=== PATIENT | female | born 1995 | race Two or more races ===

== ENCOUNTER 2018-12-13 00:03 | Inpatient (IN) | payer SELFPAY ==
[~2018-12-13] VITALS: Ht 147.3 cm; Wt 58.8 kg
[2018-12-13] VITALS (7 sets, daily range): BP systolic 88–119; BP diastolic 52–78
[2018-12-13 00:36] LABS: BASO # 0.1 x10^3/uL (0.0-0.2); BASO % 1 % (0-3); EOS # 0.1 x10^3/uL (0.0-0.7); EOS % 1 % (0-3); HEMATOCRIT 40.1 % (36.0-47.0); HEMOGLOBIN 13.6 g/dL (12.0-15.5); LYMPH # 3.7 x10^3/uL (1.0-4.8); LYMPH % 46 % (24-48); MEAN CORPUSCULAR HEMOGLOBIN 32 pg (25-35); MEAN CORPUSCULAR HGB CONC 34 g/dL (31-37); MEAN CORPUSCULAR VOLUME 93 fL (79-100); MONO # 0.6 x10^3/uL (0.0-1.1); MONO % 7 % (0-9); NEUT # 3.5 x10^3uL (1.8-7.7); NEUT % 44 % (31-73); PLATELET COUNT 225 x10^3/uL (140-400); RED BLOOD COUNT 4.31 x10^6/uL (3.50-5.40); WHITE BLOOD COUNT 7.9 x10^3/uL (4.0-11.0)
[2018-12-13] MEDS ORDERED: CONTRAST GIVEN. MC PRN (00:45)
--- NOTE | 2018-12-13 00:52 | RAD ---
INDICATION: code stroke rt sided weakness, visual changes COMPARISON: None. TECHNIQUE: Axial CT images obtained through the head without intravenous contrast. One or more of the following individualized dose reduction techniques were utilized for this examination: 1. Automated exposure control; 2. Adjustment of the mA and/or kV according to patient size; 3. Use of iterative reconstruction technique. FINDINGS: No intracranial hemorrhage. No midline shift. Basal cisterns patent. Ventricles and sulci are unremarkable. No acute osseous abnormality. Orbits and paranasal sinuses unremarkable. IMPRESSION: 1. No acute intracranial hemorrhage. Report called to the ER at 12:47 AM on date of exam Electronically signed by: Anthony Vargas MD (12/13/2018 12:49 AM) [facility]
[2018-12-13] MEDS ORDERED: IOHEXOL 350 MG/ML 100 ML VIAL. IV ONE ×2 (01:00→06:00)
[2018-12-13] MEDS ORDERED: IV NORMAL SALINE 1000ML BAG 1,000 ML IV ONE (01:00)
--- NOTE | 2018-12-13 01:03 | PHYS DOC ---
Past Medical History Past Medical History: No Pertinent History Past Surgical History: No Surgical History Additional Information: Nonsmoker Alcohol Use: None Drug Use: None Adult General Chief Complaint Chief Complaint: NEURO SYMPTOMS/DEFICITS HPI HPI Patient is a 23 year old female who presents with right sided numbness. Patient states that she was taking a shower around 2330 this evening when her right arm, face, and leg went numb. Patient states that she also developed blurred vision at that time. Patient reports a gradual onset headache that began around 1700 this evening. Patient's boyfriend who is present at bedside states that the patient could not remember that they have a cat or the cat's name. Patient's headache is located in the occipital area. Patient describes the headache as pound and burning and currently rates it to be 7/1-. Patient denies photophobia, phonophobia, chest pain, and shortness of breath. Patient states that she has had headaches in the past, but never as bad as her current headache. LMP was 4 weeks ago. Patient is on oral contraceptives. Review of Systems Review of Systems Constitutional: Denies fever or chills Eyes: Reports change in visual acuity. Denies redness, or eye pain HENT: Denies nasal congestion or sore throat Respiratory: Denies cough or shortness of breath Cardiovascular: Denies chest pain or palpitations. GI: Denies abdominal pain, nausea, vomiting, or diarrhea : Denies dysuria or hematuria Musculoskeletal: Denies back pain or joint pain Integument: Denies rash or skin lesions Neurologic: Reports headache, weakness, and sensory changes. Complete systems were reviewed and found to be within normal limits, except as documented in this note. Current Medications Current Medications Current Medications Medications (Trade) Dose Ordered Sig/[facility] Start Time Stop Time Status Last Admin Dose Admin Aspirin (Miguel Aspirin) 325 mg 1X ONCE 12/13/18 01:30 12/13/18 01:31 DC 12/13/18 01:07 325 MG Info (CONTRAST GIVEN -- Rx MONITORING) 1 each PRN DAILY PRN 12/13/18 00:45 12/15/18 00:44 Iohexol (Omnipaque 350 Mg/ml) 90 ml 1X ONCE 12/13/18 01:00 12/13/18 01:01 DC 12/13/18 00:45 90 ML Lorazepam (Ativan) 0.5 mg 1X ONCE 12/13/18 01:00 12/13/18 01:01 DC 12/13/18 01:07 0.5 MG Sodium Chloride 1,000 ml @ 1,000 mls/hr 1X ONCE 12/13/18 01:00 12/13/18 01:59 DC 12/13/18 01:07 1,000 MLS/HR Allergies Allergies Allergies Coded Allergies Type Severity Reaction Last Updated Verified No Known Drug Allergies 12/13/18 No Physical Exam Physical Exam Constitutional: Well developed, well nourished, and tearful throughout examination. HENT: tenderness of occipital area on palpation, oropharynx moist, nose normal. Eyes: PERRL, EOMI, conjunctiva normal, no discharge. Neck: Normal range of motion, supple, no stridor. Cardiovascular: Heart rate regular rhythm, no murmur Lungs & Thorax: Bilateral breath sounds clear to auscultation Abdomen: Soft, no tenderness on palpation. Skin: Warm, dry. Back: No tenderness, no CVA tenderness. Extremities: ROM intact, no edema. Neurologic: Alert and oriented X3, decreased sensation of right face, right arm, and right leg. No slurred speech. No facial droop. Slight drifting of the right leg noted. No drift of left leg. Psychologic: Affect normal. Speech normal. Current Patient Data Vital Signs Vital Signs Date Time Temp Pulse Resp B/P (MAP) Pulse Ox O2 Delivery O2 Flow Rate FiO2 12/13/18 02:07 83 16 100 12/13/18 00:03 98.5 123/75 (91) Room Air 98.5 Lab Values Laboratory Tests Test 12/13/18 00:19 12/13/18 00:25 12/13/18 00:54 12/13/18 01:44 Glucose (Fingerstick) 124 mg/dL (70-99) H White Blood Count 7.9 x10^3/uL (4.0-11.0) Red Blood Count 4.31 x10^6/uL (3.50-5.40) Hemoglobin 13.6 g/dL (12.0-15.5) Hematocrit 40.1 % (36.0-47.0) Mean Corpuscular Volume 93 fL (79-100) Mean Corpuscular Hemoglobin 32 pg (25-35) Mean Corpuscular Hemoglobin Concent 34 g/dL (31-37) Red Cell Distribution Width 13.0 % (11.5-14.5) Platelet Count 225 x10^3/uL (140-400) Neutrophils (%) (Auto) 44 % (31-73) Lymphocytes (%) (Auto) 46 % (24-48) Monocytes (%) (Auto) 7 % (0-9) Eosinophils (%) (Auto) 1 % (0-3) Basophils (%) (Auto) 1 % (0-3) Neutrophils # (Auto) 3.5 x10^3uL (1.8-7.7) Lymphocytes # (Auto) 3.7 x10^3/uL (1.0-4.8) Monocytes # (Auto) 0.6 x10^3/uL (0.0-1.1) Eosinophils # (Auto) 0.1 x10^3/uL (0.0-0.7) Basophils # (Auto) 0.1 x10^3/uL (0.0-0.2) Lactic Acid Level 1.5 mmol/L (0.4-2.0) Magnesium Level 1.9 mg/dL (1.8-2.4) Ethyl Alcohol Level < 10 mg/dL (0-10) Sodium Level 137 mmol/L (136-145) Potassium Level 3.1 mmol/L (3.5-5.1) L Chloride Level 105 mmol/L (98-107) Carbon Dioxide Level 23 mmol/L (21-32) Anion Gap 9 (6-14) Blood Urea Nitrogen 8 mg/dL (7-20) Creatinine 0.6 mg/dL (0.6-1.0) Estimated GFR (Cockcroft-Gault) 123.9 BUN/Creatinine Ratio 13 (6-20) Glucose Level 109 mg/dL (70-99) H Calcium Level 7.8 mg/dL (8.5-10.1) L Total Bilirubin 0.1 mg/dL (0.2-1.0) L Aspartate Amino Transferase (AST) 18 U/L (15-37) Alanine Aminotransferase (ALT) 20 U/L (14-59) Alkaline Phosphatase 65 U/L (46-116) Creatine Kinase 100 U/L (26-192) Creatine Kinase MB (Mass) 0.8 ng/mL (0.0-3.6) Creatine Kinase MB Relative Index 0.8 % (0-4) Troponin I Quantitative < 0.017 ng/mL (0.000-0.055) Total Protein 6.2 g/dL (6.4-8.2) L Albumin 3.0 g/dL (3.4-5.0) L Albumin/Globulin Ratio 0.9 (1.0-1.7) L Urine Opiates Screen Neg (NEG) Urine Methadone Screen Neg (NEG) Urine Barbiturates Neg (NEG) Urine Phencyclidine Screen Neg (NEG) Urine Amphetamine/Methamphetamine Neg (NEG) Urine Benzodiazepines Screen Neg (NEG) Urine Cocaine Screen Neg (NEG) Urine Cannabinoids Screen Neg (NEG) Urine Ethyl Alcohol Neg (NEG) Test 12/13/18 01:46 POC Urine HCG, Qualitative Hcg negative (Negative) Laboratory Tests 12/13/18 00:25 Laboratory Tests 12/13/18 00:54 EKG EKG ECG performed at 01:06 reveals normal sinus rhythm at 69bpm. No ST elevation. Radiology/Procedures Radiology/Procedures PROCEDURE: CT CODE STROKE HEAD WO INDICATION: code stroke rt sided weakness, visual changes COMPARISON: None. TECHNIQUE: Axial CT images obtained through the head without intravenous contrast. One or more of the following individualized dose reduction techniques were utilized for this examination: 1. Automated exposure control; 2. Adjustment of the mA and/or kV according to patient size; 3. Use of iterative reconstruction technique. FINDINGS: No intracranial hemorrhage. No midline shift. Basal cisterns patent. Ventricles and sulci are unremarkable. No acute osseous abnormality. Orbits and paranasal sinuses unremarkable. IMPRESSION: 1. No acute intracranial hemorrhage. Report called to the ER at 12:47 AM on date of exam Electronically signed by: Anthony Vargas MD (12/13/2018 12:49 AM) [facility] PROCEDURE: CTA HEAD/NECK - CODE STROKE INDICATION: right sided numbness, visual changes, right leg weakness Omni 350 90 ml COMPARISON: Head CT earlier same day TECHNIQUE: Axial CT images obtained through the head and neck arterial vasculature with intravenous contrast with three-dimensional images process per angiogram protocol. Estimates of carotid stenosis based on criteria that correlate with NASCET.. One or more of the following individualized dose reduction techniques were utilized for this examination: 1. Automated exposure control; 2. Adjustment of the mA and/or kV according to patient size; 3. Use of iterative reconstruction technique. FINDINGS: Neck angiogram: The vertebral arteries are patent. Common carotid and internal carotid arteries are patent. Proximal external carotid arteries are patent. Brain angiography: Basilar artery is patent. The proximal middle, anterior and posterior cerebral arteries are patent. The more distal vessels are not well evaluated secondary to small size and motion. Other findings: No retro-orbital hematoma. Soft tissue density anterior mediastinum. Commonly from residual thymus in a patient of this age. IMPRESSION: 1. No evidence of occlusion of the vertebral, common carotid or internal carotid arteries. 2. The proximal middle, anterior and posterior cerebral arteries are patent. If there is high clinical concern for stroke MRI could better evaluate for a more peripheral stroke that would not be well seen on CT angiography. Electronically signed by: Anthony Vargas MD (12/13/2018 1:45 AM) [facility] Course & Med Decision Making Course & Med Decision Making Patient is a 23 year old female who presents to the ED for right sided numbness. Code stroke initiated. Low risk factors. NIHSS 3. Labs obtained and posted to chart. Patient with significant improvement of symptoms on reexamination. TPA therefore held. Pertinent Labs and Imaging studies reviewed. (See chart for details). Cannot fully exclude TIA with rapidly improving symptoms. Patient therefore offered admission for further evaluation and treatment. Neurology Consulted. Discussed case with Dr. Hernandez (hospitalist) who agrees with admission. Discussed findings and plan with patient and her family who verbalized understanding and agreed. Dragon Disclaimer Dragon Disclaimer This electronic medical record was generated, in whole or in part, using a voice recognition dictation system. NIHSS Stroke Scale NIH Stroke Scale: NIH Stroke Scale Response (Comments) Value Level of Consciousness: 0 Alert/Responsive 0 LOC Questions: 0 Answers both correctly 0 LOC Commands: 0 Performs both tasks 0 Best Gaze: 0 Normal 0 Visual: 1 Partial hemianopia 1 Facial Palsy: 0 Normal, symmetrical 0 Motor - Left Arm 0 No drift 0 Motor - Right Arm 0 No drift 0 Motor - Left Leg 0 No drift 0 Motor: Right Leg 1 Drift but can hold 1 Limb Ataxia: 0 Absent 0 Sensory: 1 Mid to moderate loss 1 Best Language: 0 Normal 0 Dysathria: 0 Normal 0 Extinction and Inattention: 0 Normal 0 Total 3 Departure Departure Impression: Primary Impression: Arm paresthesia, right Additional Impression: Weakness of right lower extremity Disposition: ADMITTED INPATIENT Admitting Physician: Other (David) Condition: STABLE Referrals: NO PCP (PCP) Critical Care Time Critical care time was 30 minutes which includes time at bedside, spent in discussion of patient's care with specialists and/or family members, with interpretation of laboratory and/or radiological studies and is exclusive of procedures. Problem Qualifiers MARTINEZ WILLETT DO Dec 13, 2018 01:03
[2018-12-13 01:11] LABS: CALCIUM 7.8 mg/dL (8.5-10.1); CREATININE 0.6 mg/dL (0.6-1.0); GFR 123.9; POTASSIUM 3.1 mmol/L (3.5-5.1)
[2018-12-13 01:17] LABS: ALBUMIN/GLOBULIN RATIO 0.9 (1.0-1.7); TOTAL BILIRUBIN 0.1 mg/dL (0.2-1.0); TOTAL PROTEIN 6.2 g/dL (6.4-8.2)
[2018-12-13] MEDS ORDERED: ASPIRIN 325 MG TABLET PO ONE (01:30)
--- NOTE | 2018-12-13 01:48 | RAD ---
INDICATION: right sided numbness, visual changes, right leg weakness Omni 350 90 ml COMPARISON: Head CT earlier same day TECHNIQUE: Axial CT images obtained through the head and neck arterial vasculature with intravenous contrast with three-dimensional images process per angiogram protocol. Estimates of carotid stenosis based on criteria that correlate with NASCET.. One or more of the following individualized dose reduction techniques were utilized for this examination: 1. Automated exposure control; 2. Adjustment of the mA and/or kV according to patient size; 3. Use of iterative reconstruction technique. FINDINGS: Neck angiogram: The vertebral arteries are patent. Common carotid and internal carotid arteries are patent. Proximal external carotid arteries are patent. Brain angiography: Basilar artery is patent. The proximal middle, anterior and posterior cerebral arteries are patent. The more distal vessels are not well evaluated secondary to small size and motion. Other findings: No retro-orbital hematoma. Soft tissue density anterior mediastinum. Commonly from residual thymus in a patient of this age. IMPRESSION: 1. No evidence of occlusion of the vertebral, common carotid or internal carotid arteries. 2. The proximal middle, anterior and posterior cerebral arteries are patent. If there is high clinical concern for stroke MRI could better evaluate for a more peripheral stroke that would not be well seen on CT angiography. Electronically signed by: Anthony Vargas MD (12/13/2018 1:45 AM) [facility]
[2018-12-13 02:00] LABS: BARBITURATES NEG (NEG); BENZODIAZEPINES NEG (NEG); CANNABINOIDS NEG (NEG); COCAINE NEG (NEG); METHADONE NEG (NEG); OPIATES NEG (NEG); PHENCYCLIDINE NEG (NEG)
[2018-12-13 02:30] LABS: AMPHETAMINE/METHAMPHETAMINE NEG (NEG)
[2018-12-13] MEDS ORDERED: POTASSIUM CHLORIDE 20 MEQ TABLET.ER. PO ONE ×2 (02:30→11:00)
[2018-12-13] MEDS ORDERED: BUTALB/APAP/CAFEIN 50/325/40MG TABLET. PO ONE (03:00)
--- NOTE | 2018-12-13 04:00 | NUR ---
Patient arrived to unit at 0320. Patient attached to monitors and assessed. Patient weak on R side and has tingling sensation. NIH performed with ED RN. Patient situated and oriented to unit routines, call light, bed controls, tv controls, activity (up with assist), and diet (cardiac). Will continue to monitor.
--- NOTE | 2018-12-13 06:15 | EKG ---
[facility] [address] [place] [address] Test Date: 2018-12-13 Test Time: 01:06:29 Pat Name: ALLEN RAHMAN Department: Room: [facility] Gender: F [employer] Technician: : 1995 Requested By: MARTINEZ WILLETT Order Number: [id number] Reading MD: Karsten Allen Measurements Intervals Ramsey Rate: 69 P: 26 MO: 140 QRS: 35 QRSD: 84 T: 31 QT: 410 QTc: 446 Interpretive Statements SINUS RHYTHM NONSPECIFIC ST-T WAVE CHANGES. Electronically Signed On 12-19-2018 11:48:44 CDT by Karsten Allen
[2018-12-13] MEDS: SUMAtriptan SUCCINATE 100 MG TABLET PO PRN (10:33)
--- NOTE | 2018-12-13 10:51 | PDOC1 ---
History and Physical Date of Admission Date of Admission DATE: 12/13/18 TIME: 10:46 History of Present Illness History of Present Illness Zoila is a 23 year old female admit from ER with severe headache, pounding headache, "worst of my life" headache she also had right hand weakness, numbness and parathesias, started last night, pain is still severe, but weakness is gone, she has some blurry vision and new stabismus of her right eye LMP was 4 weeks ago. 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, Past Medical History Cardiovascular: No pertinent hx Pulmonary: No pertinent hx GI: No pertinent hx Heme/Onc: No pertinent hx Hepatobiliary: No pertinent hx Psych: No pertinent hx Rheumatologic: No pertinent hx Grav: 2 Para: 2 Family History Family History: Diabetes Social History Smoke: No ALCOHOL: none Drugs: None Current Problem List Problem List Problems Medical Problems: (1) Arm paresthesia, right Status: Acute Current Medications Current Medications Current Medications Sodium Chloride 1,000 ml @ 1,000 mls/hr 1X ONCE IV Last administered on 12/13/18at 01:07; Start 12/13/18 at 01:00; Stop 12/13/18 at 01:59; Status DC Iohexol (Omnipaque 350 Mg/ml) 90 ml 1X ONCE IV Last administered on 12/13/18at 00:45; Start 12/13/18 at 01:00; Stop 12/13/18 at 01:01; Status DC Lorazepam (Ativan) 0.5 mg 1X ONCE IV Last administered on 12/13/18at 01:07; Start 12/13/18 at 01:00; Stop 12/13/18 at 01:01; Status DC Info (CONTRAST GIVEN -- Rx MONITORING) 1 each PRN DAILY PRN MC SEE COMMENTS; Start 12/13/18 at 00:45; Stop 12/15/18 at 00:44 Aspirin (Miguel Aspirin) 325 mg 1X ONCE PO Last administered on 12/13/18at 01:07; Start 12/13/18 at 01:30; Stop 12/13/18 at 01:31; Status DC Potassium Chloride (Klor-Con) 40 meq 1X ONCE PO Last administered on 12/13/18at 02:50; Start 12/13/18 at 02:30; Stop 12/13/18 at 02:31; Status DC Acetaminophen/ Butalbital/ Caffeine (Fioricet) 1 tab 1X ONCE PO Last administered on 12/13/18at 02:51; Start 12/13/18 at 03:00; Stop 12/13/18 at 03:01; Status DC Iohexol (Omnipaque 350 Mg/ml) 90 ml 1X ONCE IV ; Start 12/13/18 at 06:00; Stop 12/13/18 at 06:01; Status DC Sumatriptan Succinate (Imitrex) 100 mg PRN Q2HR PRN PO MIGRAINE HEADACHE Last administered on 12/13/18at 10:33; Start 12/13/18 at 08:45 Allergies Allergies: Coded Allergies: No Known Drug Allergies (Unverified , 12/13/18) ROS General: YES: Fatigue; No: Chills, Night Sweats, Malaise, Appetite, Other PSYCHOLOGICAL ROS: No: Anxiety, Behavioral Disorder, Concentration difficultie, Decreased libido, Depression, Disorientation, Hallucinations, Hostility, Irritablity, Memory difficulties, Mood Swings, Obsessive thoughts, Physical abuse, Sexual abuse, Sleep disturbances, Suicidal ideation, Other Eyes: No Blurry vision, No Decreased vision, No Double vision, No Dry eyes, No Excessive tearing, No Eye Pain, No Itchy Eyes, No Loss of vision, No Photophobia, No Scotomata, No Uses contacts, No Uses glasses, No Other HEENT: YES: Heacaches; No: Visual Changes, Hearing change, Nasal congestion, Nasal discharge, Oral lesions, Sinus pain, Sore Throat, Epistaxis, Sneezing, Snoring, Tinnitus, Vertigo, Vocal changes, Other Respiratory: No: Cough, Hemoptysis, Orthopnea, Pleuritic Pain, Shortness of breath, SOB with excertion, Sputum Changes, Stridor, Tachypnea, Wheezing, Other Cardiovascular: No Chest Pain, No Palpitations, No Orthopnea, No Paroxysmal Noc. Dyspnea, No Edema, No Lt Headedness, No Other Gastrointestinal: Yes Nausea; No Vomiting, No Abdominal Pain, No Diarrhea, No Constipation, No Melena, No Hematochezia, No Other Genitourinary: No Dysuria, No Frequency, No Incontinence, No Hematuria, No Retention, No Discharge, No Urgency, No Pain, No Flank Pain, No Other, No , No , No , No , No , No , No Musculoskeletal: No Gait Disturbance, No Joint Pain, No Joint Stiffness, No Joint Swelling, No Muscle Pain, No Muscular Weakness, No Pain In:, No Swelling In:, No Other Neurological: Yes Gait Disturbance, Yes Headaches, Yes Numbness/Tingling Skin: Yes Dry Skin; No Eczema, No Hair Changes, No Lumps, No Mole Changes, No Mottling, No Nail Changes, No Pruritus, No Rash, No Skin Lesion Changes, No Other, No Acne Physical Exam General: Alert, Oriented X3, moderate distress HEENT: PERRLA, Mucous membr. moist/pink Lungs: Clear to auscultation, Normal air movement Heart: S1S2, no murmurs Abdomen: Normal bowel sounds, Soft Extremities: No cyanosis, Normal pulses Skin: No breakdown Neuro: Sensation intact Psych/Mental Status: Other (emotional, distress with headache) Vitals Vitals Vital Signs Date Time Temp Pulse Resp B/P (MAP) Pulse Ox O2 Delivery O2 Flow Rate FiO2 12/13/18 08:16 95/52 (66) 12/13/18 07:15 98.7 65 16 98 Room Air 98.7 Labs Labs Laboratory Tests Test 12/13/18 00:19 12/13/18 00:25 12/13/18 00:54 12/13/18 01:44 Glucose (Fingerstick) 124 mg/dL (70-99) White Blood Count 7.9 x10^3/uL (4.0-11.0) Red Blood Count 4.31 x10^6/uL (3.50-5.40) Hemoglobin 13.6 g/dL (12.0-15.5) Hematocrit 40.1 % (36.0-47.0) Mean Corpuscular Volume 93 fL (79-100) Mean Corpuscular Hemoglobin 32 pg (25-35) Mean Corpuscular Hemoglobin Concent 34 g/dL (31-37) Red Cell Distribution Width 13.0 % (11.5-14.5) Platelet Count 225 x10^3/uL (140-400) Neutrophils (%) (Auto) 44 % (31-73) Lymphocytes (%) (Auto) 46 % (24-48) Monocytes (%) (Auto) 7 % (0-9) Eosinophils (%) (Auto) 1 % (0-3) Basophils (%) (Auto) 1 % (0-3) Neutrophils # (Auto) 3.5 x10^3uL (1.8-7.7) Lymphocytes # (Auto) 3.7 x10^3/uL (1.0-4.8) Monocytes # (Auto) 0.6 x10^3/uL (0.0-1.1) Eosinophils # (Auto) 0.1 x10^3/uL (0.0-0.7) Basophils # (Auto) 0.1 x10^3/uL (0.0-0.2) Lactic Acid Level 1.5 mmol/L (0.4-2.0) Magnesium Level 1.9 mg/dL (1.8-2.4) Ethyl Alcohol Level < 10 mg/dL (0-10) Sodium Level 137 mmol/L (136-145) Potassium Level 3.1 mmol/L (3.5-5.1) Chloride Level 105 mmol/L (98-107) Carbon Dioxide Level 23 mmol/L (21-32) Anion Gap 9 (6-14) Blood Urea Nitrogen 8 mg/dL (7-20) Creatinine 0.6 mg/dL (0.6-1.0) Estimated GFR (Cockcroft-Gault) 123.9 BUN/Creatinine Ratio 13 (6-20) Glucose Level 109 mg/dL (70-99) Calcium Level 7.8 mg/dL (8.5-10.1) Total Bilirubin 0.1 mg/dL (0.2-1.0) Aspartate Amino Transf (AST/SGOT) 18 U/L (15-37) Alanine Aminotransferase (ALT/SGPT) 20 U/L (14-59) Alkaline Phosphatase 65 U/L (46-116) Creatine Kinase 100 U/L (26-192) Creatine Kinase MB (Mass) 0.8 ng/mL (0.0-3.6) Creatine Kinase MB Relative Index 0.8 % (0-4) Troponin I Quantitative < 0.017 ng/mL (0.000-0.055) Total Protein 6.2 g/dL (6.4-8.2) Albumin 3.0 g/dL (3.4-5.0) Albumin/Globulin Ratio 0.9 (1.0-1.7) Urine Opiates Screen Neg (NEG) Urine Methadone Screen Neg (NEG) Urine Barbiturates Neg (NEG) Urine Phencyclidine Screen Neg (NEG) Urine Amphetamine/Methamphetamine Neg (NEG) Urine Benzodiazepines Screen Neg (NEG) Urine Cocaine Screen Neg (NEG) Urine Cannabinoids Screen Neg (NEG) Urine Ethyl Alcohol Neg (NEG) Test 12/13/18 01:46 12/13/18 09:10 Bedside Urine HCG, Qualitative Hcg negative (Negative) Ionized Calcium 1.19 mmol/L (1.13-1.32) Laboratory Tests Test 12/13/18 00:19 12/13/18 00:25 12/13/18 00:54 12/13/18 01:44 Glucose (Fingerstick) 124 mg/dL (70-99) White Blood Count 7.9 x10^3/uL (4.0-11.0) Red Blood Count 4.31 x10^6/uL (3.50-5.40) Hemoglobin 13.6 g/dL (12.0-15.5) Hematocrit 40.1 % (36.0-47.0) Mean Corpuscular Volume 93 fL (79-100) Mean Corpuscular Hemoglobin 32 pg (25-35) Mean Corpuscular Hemoglobin Concent 34 g/dL (31-37) Red Cell Distribution Width 13.0 % (11.5-14.5) Platelet Count 225 x10^3/uL (140-400) Neutrophils (%) (Auto) 44 % (31-73) Lymphocytes (%) (Auto) 46 % (24-48) Monocytes (%) (Auto) 7 % (0-9) Eosinophils (%) (Auto) 1 % (0-3) Basophils (%) (Auto) 1 % (0-3) Neutrophils # (Auto) 3.5 x10^3uL (1.8-7.7) Lymphocytes # (Auto) 3.7 x10^3/uL (1.0-4.8) Monocytes # (Auto) 0.6 x10^3/uL (0.0-1.1) Eosinophils # (Auto) 0.1 x10^3/uL (0.0-0.7) Basophils # (Auto) 0.1 x10^3/uL (0.0-0.2) Lactic Acid Level 1.5 mmol/L (0.4-2.0) Magnesium Level 1.9 mg/dL (1.8-2.4) Ethyl Alcohol Level < 10 mg/dL (0-10) Sodium Level 137 mmol/L (136-145) Potassium Level 3.1 mmol/L (3.5-5.1) Chloride Level 105 mmol/L (98-107) Carbon Dioxide Level 23 mmol/L (21-32) Anion Gap 9 (6-14) Blood Urea Nitrogen 8 mg/dL (7-20) Creatinine 0.6 mg/dL (0.6-1.0) Estimated GFR (Cockcroft-Gault) 123.9 BUN/Creatinine Ratio 13 (6-20) Glucose Level 109 mg/dL (70-99) Calcium Level 7.8 mg/dL (8.5-10.1) Total Bilirubin 0.1 mg/dL (0.2-1.0) Aspartate Amino Transf (AST/SGOT) 18 U/L (15-37) Alanine Aminotransferase (ALT/SGPT) 20 U/L (14-59) Alkaline Phosphatase 65 U/L (46-116) Creatine Kinase 100 U/L (26-192) Creatine Kinase MB (Mass) 0.8 ng/mL (0.0-3.6) Creatine Kinase MB Relative Index 0.8 % (0-4) Troponin I Quantitative < 0.017 ng/mL (0.000-0.055) Total Protein 6.2 g/dL (6.4-8.2) Albumin 3.0 g/dL (3.4-5.0) Albumin/Globulin Ratio 0.9 (1.0-1.7) Urine Opiates Screen Neg (NEG) Urine Methadone Screen Neg (NEG) Urine Barbiturates Neg (NEG) Urine Phencyclidine Screen Neg (NEG) Urine Amphetamine/Methamphetamine Neg (NEG) Urine Benzodiazepines Screen Neg (NEG) Urine Cocaine Screen Neg (NEG) Urine Cannabinoids Screen Neg (NEG) Urine Ethyl Alcohol Neg (NEG) Test 12/13/18 01:46 12/13/18 09:10 Bedside Urine HCG, Qualitative Hcg negative (Negative) Ionized Calcium 1.19 mmol/L (1.13-1.32) VTE Prophylaxis Ordered VTE Prophylaxis Devices: No VTE Pharmacological Prophylaxi: No Assessment/Plan Assessment/Plan severe headache, imaging negative aura and pounding, 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
[2018-12-13] MEDS ORDERED: MORPHINE SULFATE 2 MG/ML VIAL. IV ONE (11:15)
[2018-12-13] MEDS: ASPIRIN 325 MG TABLET PO SCH (12:31)
[2018-12-13] MEDS ORDERED: GADOBUTROL 7.5 MMOL/7.5 ML VIAL IV ONE (14:30)
--- NOTE | 2018-12-13 15:41 | RAD ---
MRI of the Brain without and with Contrast 12/13/2018 Clinical History: Worsening headaches with right arm numbness. Technique: Unenhanced T1-weighted sagittal and axial and FLAIR, T2-weighted, gradient echo and diffusion-weighted axial images of the brain were obtained. After the intravenous administration of 5.5 cc of Gadavist, enhanced T1-weighted axial and coronal images of the brain were obtained. Findings: Comparison is made to patient's CT scan of the head dated 12/13/2018. The ventricles and sulci are within normal limits in size and configuration. Several small scattered areas of abnormally increased signal intensity are seen within the periventricular and subcortical white matter of both cerebral hemispheres particularly involving the frontal lobes on the FLAIR and T2-weighted images. These measure 2 to 3 mm in size. Their MRI appearance is nonspecific. They can be seen in patients with a history of migraine headaches. Alternatively they could represent areas of minimal small vessel ischemic disease. No acute parenchymal abnormality is seen. No abnormal area of contrast enhancement is seen. No extra-axial fluid collection is noted. There is no MRI evidence of acute ischemia/infarction. Mild mucosal thickening in seen scattered throughout the ethmoid air cells bilaterally. Normal flow voids are seen within the major vascular structures surrounding the brain parenchyma. Impression: Several small scattered areas of abnormally increased signal intensity are seen within the white matter of both cerebral hemispheres particularly involving the frontal lobes on the FLAIR and T2-weighted images. These have a nonspecific MRI appearance. They can be seen in patients with a history of migraine headaches. Alternatively they could represent areas of minimal small vessel ischemic disease. No acute parenchymal abnormality is seen. Electronically signed by: Bassam Adams MD (12/13/2018 3:38 PM) [id number]
[2018-12-13] MEDS: MORPHINE SULFATE 4 MG/ML VIAL. IV PRN (16:08)
--- NOTE | 2018-12-13 17:50 | PDOC2 ---
NEUROLOGY CONSULT Date of Admission Date of Admission DATE: 12/13/18 TIME: 17:38 Reason for Consult Reason for Consult: IMPRESSION: Right side numbness x 1 day. Blurred vision. Headaches x 1 day. Over weight. No evidence of acute CVA this time. RECOMMENDATIONS/PLAN: Neurontin 100 mg tid x 1 week. Pain control. FU with PCP. MRI w/wo contrast on 12/13/18: No acute findings. History of Present Illness 23 -year -old female patient developed symptoms of headache, pounding type pain stating, and numbness in her right side upper and lower extremities. She said she had blurred vision form time time. She came to the ER on 12/13/18 and was admitted for further evaluation. LMP was 4 weeks ago. 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 ALLERGY: NKDA MEDICATIONS: Refer to [facility] SOCIAL HISTORY: Lives at home. Denies smoking, drinking, and illicit drug use. REVIEW OF SYSTEMS: Constitutional: No malnutrition, weight loss, cachexia. Head: No traumatic brain or head injury. Skin: No edema, or rash. Ear: No infection. Eyes: No vision loss or color blindness. Nose: No bleeding or purulent discharges. Hearing: No hearing decrease. Neck: No injury. Breast: No history of cancer, masses,or discharges. Cardiac: No WI, arrhythmia. Pulmonary: No pneumonia, COPD. GI: No GI ulcer, GI bleeding, GERD. Urinary/genital: UTI. Endocrinologic: No cousin face, craniofacial dysmorphism, polydactyly. Skeletomuscular: No muscular atrophy, deformity. Neurological: see HP. Psychiatric: Denies drug use/abuse. Otherwise, not -bzymo review of systems. PHYSICAL EXAMINATION: General appearance is in subacute distress. HEENT: Normocephalic and nontraumatic. Eyes, nose, ears, and throat are unremarkable. Neck is supple. No lymphadenopathy. No bruits are heard over the carotid artery. No crepitus. Cardiovascular: S1, S2, regular rate and rhythm. Pulmonary: Clear to auscultation bilaterally. Abdomen: Bowel sounds are positive. Abdomen is soft, nontender, and nondistended. Extremities: No rash, lesions, or edema. No restriction of range of motion NEUROLOGICAL EXAMINATION: Alert Oriented to time, place and person. PERRL. EOMI. CN: no focal findings. Muscle tone: within normal. Muscle strength: 5 DTR: 2 Plantar reflex: Flexor response bilaterally Gait: not examined in bed. Sensory exam: no abnormal findings. No cerebellar signs elicited. F-T-N test accurate. Current Medications Current Medications Current Medications Sodium Chloride 1,000 ml @ 1,000 mls/hr 1X ONCE IV Last administered on 12/13/18 01:07; Start 12/13/18 at 01:00; Stop 12/13/18 at 01:59; Status DC Iohexol (Omnipaque 350 Mg/ml) 90 ml 1X ONCE IV Last administered on 12/13/18at 00:45; Start 12/13/18 at 01:00; Stop 12/13/18 at 01:01; Status DC Lorazepam (Ativan) 0.5 mg 1X ONCE IV Last administered on 12/13/18 01:07; Start 12/13/18 at 01:00; Stop 12/13/18 at 01:01; Status DC Info (CONTRAST GIVEN -- Rx MONITORING) 1 each PRN DAILY PRN MC SEE COMMENTS; Start 12/13/18 at 00:45; Stop 12/15/18 at 00:44 Aspirin (Miguel Aspirin) 325 mg 1X ONCE PO Last administered on 12/13/18 01:07; Start 12/13/18 at 01:30; Stop 12/13/18 at 01:31; Status DC Potassium Chloride (Klor-Con) 40 meq 1X ONCE PO Last administered on 12/13/18at 02:50; Start 12/13/18 at 02:30; Stop 12/13/18 at 02:31; Status DC Acetaminophen/ Butalbital/ Caffeine (Fioricet) 1 tab 1X ONCE PO Last administered on 12/13/18at 02:51; Start 12/13/18 at 03:00; Stop 12/13/18 at 03:01; Status DC Iohexol (Omnipaque 350 Mg/ml) 90 ml 1X ONCE IV ; Start 12/13/18 at 06:00; Stop 12/13/18 at 06:01; Status DC Sumatriptan Succinate (Imitrex) 100 mg PRN Q2HR PRN PO MIGRAINE HEADACHE Last administered on 12/13/18at 10:33; Start 12/13/18 at 08:45 Potassium Chloride (Klor-Con) 40 meq 1X ONCE PO Last administered on 12/13/18 11:12; Start 12/13/18 at 11:00; Stop 12/13/18 at 11:01; Status DC Potassium Chloride (Klor-Con) 20 meq DAILYWBKFT PO ; Start 12/14/18 at 08:00 Aspirin (Miguel Aspirin) 325 mg DAILYWBKFT PO Last administered on 12/13/18 12:31; Start 12/13/18 at 13:00 Morphine Sulfate (Morphine Sulfate) 2 mg 1X ONCE IV Last administered on 12/13/18at 11:13; Start 12/13/18 at 11:15; Stop 12/13/18 at 11:16; Status DC Morphine Sulfate (Morphine Sulfate) 4 mg PRN Q2HR PRN IV PAIN Last administered on 12/13/18at 16:08; Start 12/13/18 at 12:45 Gadobutrol (Gadavist) 5.5 mmol 1X ONCE IV Last administered on 12/13/18 14:39; Start 12/13/18 at 14:30; Stop 12/13/18 at 14:31; Status DC Allergies Allergies: Allergies Coded Allergies Type Severity Reaction Last Updated Verified No Known Drug Allergies 12/13/18 No ROS Review of System The patient denies any associated fevers, chills, headache, ear pain, rhinorrhea, sore throat, stiff neck, productive cough, chest pain, shortness of breath, back or flank pain, abdominal pain, nausea, vomiting, diarrhea, constipation, dysuria, rash, numbness, weakness, tingling, incontinence, difficulty ambulating, or diaphoresis. Physical Exam Physical Exam General: Well developed, well nourished, no acute distress, well appearing HEENT: Pupils equally round and reactive to light, EOMI, no discharge, normal conjunctiva Neck: Supple, no nuchal rigidity, no JVD, trachea midline, no tenderness Cardiac: RRR, no murmurs, no gallops, no rubs Chest/Lungs: CTAB, no wheeze, no rhonchi, no crackles Abdomen: soft, non-distended, no guarding, no peritoneal signs, non-tender Back: No tenderness Extremities: no edema, pulses intact, non-tender,capillary refill <3 sec bilateral upper and lower extremities, Neuro: Alert and oriented x 4, no focal deficits, normal speech Vitals Vitals: Vital Signs Date Time Temp Pulse Resp B/P (MAP) Pulse Ox O2 Delivery O2 Flow Rate FiO2 12/13/18 16:38 16 Room Air 12/13/18 15:05 98.4 66 106/76 (86) 99 98.4 Labs Labs Laboratory Tests Test 12/13/18 00:19 12/13/18 00:25 12/13/18 00:54 12/13/18 01:44 Glucose (Fingerstick) 124 mg/dL (70-99) White Blood Count 7.9 x10^3/uL (4.0-11.0) Red Blood Count 4.31 x10^6/uL (3.50-5.40) Hemoglobin 13.6 g/dL (12.0-15.5) Hematocrit 40.1 % (36.0-47.0) Mean Corpuscular Volume 93 fL (79-100) Mean Corpuscular Hemoglobin 32 pg (25-35) Mean Corpuscular Hemoglobin Concent 34 g/dL (31-37) Red Cell Distribution Width 13.0 % (11.5-14.5) Platelet Count 225 x10^3/uL (140-400) Neutrophils (%) (Auto) 44 % (31-73) Lymphocytes (%) (Auto) 46 % (24-48) Monocytes (%) (Auto) 7 % (0-9) Eosinophils (%) (Auto) 1 % (0-3) Basophils (%) (Auto) 1 % (0-3) Neutrophils # (Auto) 3.5 x10^3uL (1.8-7.7) Lymphocytes # (Auto) 3.7 x10^3/uL (1.0-4.8) Monocytes # (Auto) 0.6 x10^3/uL (0.0-1.1) Eosinophils # (Auto) 0.1 x10^3/uL (0.0-0.7) Basophils # (Auto) 0.1 x10^3/uL (0.0-0.2) Lactic Acid Level 1.5 mmol/L (0.4-2.0) Magnesium Level 1.9 mg/dL (1.8-2.4) Ethyl Alcohol Level < 10 mg/dL (0-10) Sodium Level 137 mmol/L (136-145) Potassium Level 3.1 mmol/L (3.5-5.1) Chloride Level 105 mmol/L (98-107) Carbon Dioxide Level 23 mmol/L (21-32) Anion Gap 9 (6-14) Blood Urea Nitrogen 8 mg/dL (7-20) Creatinine 0.6 mg/dL (0.6-1.0) Estimated GFR (Cockcroft-Gault) 123.9 BUN/Creatinine Ratio 13 (6-20) Glucose Level 109 mg/dL (70-99) Calcium Level 7.8 mg/dL (8.5-10.1) Total Bilirubin 0.1 mg/dL (0.2-1.0) Aspartate Amino Transf (AST/SGOT) 18 U/L (15-37) Alanine Aminotransferase (ALT/SGPT) 20 U/L (14-59) Alkaline Phosphatase 65 U/L (46-116) Creatine Kinase 100 U/L (26-192) Creatine Kinase MB (Mass) 0.8 ng/mL (0.0-3.6) Creatine Kinase MB Relative Index 0.8 % (0-4) Troponin I Quantitative < 0.017 ng/mL (0.000-0.055) Total Protein 6.2 g/dL (6.4-8.2) Albumin 3.0 g/dL (3.4-5.0) Albumin/Globulin Ratio 0.9 (1.0-1.7) Urine Opiates Screen Neg (NEG) Urine Methadone Screen Neg (NEG) Urine Barbiturates Neg (NEG) Urine Phencyclidine Screen Neg (NEG) Urine Amphetamine/Methamphetamine Neg (NEG) Urine Benzodiazepines Screen Neg (NEG) Urine Cocaine Screen Neg (NEG) Urine Cannabinoids Screen Neg (NEG) Urine Ethyl Alcohol Neg (NEG) Test 12/13/18 01:46 12/13/18 09:10 Bedside Urine HCG, Qualitative Hcg negative (Negative) Ionized Calcium 1.19 mmol/L (1.13-1.32) Laboratory Tests Test 12/13/18 00:19 12/13/18 00:25 12/13/18 00:54 12/13/18 01:44 Glucose (Fingerstick) 124 mg/dL (70-99) White Blood Count 7.9 x10^3/uL (4.0-11.0) Red Blood Count 4.31 x10^6/uL (3.50-5.40) Hemoglobin 13.6 g/dL (12.0-15.5) Hematocrit 40.1 % (36.0-47.0) Mean Corpuscular Volume 93 fL (79-100) Mean Corpuscular Hemoglobin 32 pg (25-35) Mean Corpuscular Hemoglobin Concent 34 g/dL (31-37) Red Cell Distribution Width 13.0 % (11.5-14.5) Platelet Count 225 x10^3/uL (140-400) Neutrophils (%) (Auto) 44 % (31-73) Lymphocytes (%) (Auto) 46 % (24-48) Monocytes (%) (Auto) 7 % (0-9) Eosinophils (%) (Auto) 1 % (0-3) Basophils (%) (Auto) 1 % (0-3) Neutrophils # (Auto) 3.5 x10^3uL (1.8-7.7) Lymphocytes # (Auto) 3.7 x10^3/uL (1.0-4.8) Monocytes # (Auto) 0.6 x10^3/uL (0.0-1.1) Eosinophils # (Auto) 0.1 x10^3/uL (0.0-0.7) Basophils # (Auto) 0.1 x10^3/uL (0.0-0.2) Lactic Acid Level 1.5 mmol/L (0.4-2.0) Magnesium Level 1.9 mg/dL (1.8-2.4) Ethyl Alcohol Level < 10 mg/dL (0-10) Sodium Level 137 mmol/L (136-145) Potassium Level 3.1 mmol/L (3.5-5.1) Chloride Level 105 mmol/L (98-107) Carbon Dioxide Level 23 mmol/L (21-32) Anion Gap 9 (6-14) Blood Urea Nitrogen 8 mg/dL (7-20) Creatinine 0.6 mg/dL (0.6-1.0) Estimated GFR (Cockcroft-Gault) 123.9 BUN/Creatinine Ratio 13 (6-20) Glucose Level 109 mg/dL (70-99) Calcium Level 7.8 mg/dL (8.5-10.1) Total Bilirubin 0.1 mg/dL (0.2-1.0) Aspartate Amino Transf (AST/SGOT) 18 U/L (15-37) Alanine Aminotransferase (ALT/SGPT) 20 U/L (14-59) Alkaline Phosphatase 65 U/L (46-116) Creatine Kinase 100 U/L (26-192) Creatine Kinase MB (Mass) 0.8 ng/mL (0.0-3.6) Creatine Kinase MB Relative Index 0.8 % (0-4) Troponin I Quantitative < 0.017 ng/mL (0.000-0.055) Total Protein 6.2 g/dL (6.4-8.2) Albumin 3.0 g/dL (3.4-5.0) Albumin/Globulin Ratio 0.9 (1.0-1.7) Urine Opiates Screen Neg (NEG) Urine Methadone Screen Neg (NEG) Urine Barbiturates Neg (NEG) Urine Phencyclidine Screen Neg (NEG) Urine Amphetamine/Methamphetamine Neg (NEG) Urine Benzodiazepines Screen Neg (NEG) Urine Cocaine Screen Neg (NEG) Urine Cannabinoids Screen Neg (NEG) Urine Ethyl Alcohol Neg (NEG) Test 12/13/18 01:46 12/13/18 09:10 Bedside Urine HCG, Qualitative Hcg negative (Negative) Ionized Calcium 1.19 mmol/L (1.13-1.32) VIELKA MATIAS MD Dec 13, 2018 17:50
[2018-12-13] MEDS: GABAPENTIN 100 MG CAPSULE. PO SCH (20:11)
[2018-12-13] MEDS: POTASSIUM CL 30MEQ D5-0.45NACL 1,000 ML IV SCH (20:15)
--- NOTE | 2018-12-14 01:45 | NUR ---
Assumed care of patient at this time, assessment as charted. Patient denied any new complaints or concerns at this time.
[2018-12-14 03:35] VITALS: BP 88/52
[2018-12-14] MEDS: POTASSIUM CL 30MEQ D5-0.45NACL 1,000 ML IV SCH ×2 (05:56→17:00)
[2018-12-14 07:00] VITALS: BP 92/66
[2018-12-14] MEDS: POTASSIUM CHLORIDE 20 MEQ TABLET.ER. PO SCH (08:00)
[2018-12-14] MEDS: ASPIRIN 325 MG TABLET PO SCH (08:41)
[2018-12-14] MEDS: GABAPENTIN 100 MG CAPSULE. PO SCH ×3 (08:41→21:23)
[2018-12-14] MEDS: ASPIRIN CHEWABLE 81 MG TABLET. PO SCH (09:00)
--- NOTE | 2018-12-14 09:03 | PDOC ---
PROGRESS NOTES Assessment Problems Medical Problems: (1) Arm paresthesia, right Status: Acute Right side numbness x 1 day. Blurred vision. Headaches x 1 day. No evidence of acute CVA Symptoms explainable by migraine headache. Abnormal MRI, nonspecific white-matter changes, doubt multiple sclerosis Plan Echocardiogram Does not need statin, no sign of stroke Okay for discharge Neurontin 100 mg tid Daily Aspirin 81 mg Pain control. FU with Dr. Cavazos in 4-6 weeks Subjective Feels much better, still has some right-sided numbness Objective Vital Signs Date Time Temp Pulse Resp B/P (MAP) Pulse Ox O2 Delivery O2 Flow Rate FiO2 12/14/18 07:00 98.6 65 18 92/66 (75) 98 Room Air 98.6 Intake and Output 12/14/18 07:00 Intake Total 700 ml Balance 700 ml Intake Oral 700 ml # Voids 3 PHYSICAL EXAM Alert. Oriented to time, place and person. PERRL. EOMI. CN: no focal findings. Muscle tone: normal. Muscle strength: 5/5 DTR: 2+ Plantar reflex: flexor Gait: normal. Sensory exam: patchy loss in right arm. No cerebellar signs elicited. Review of Relevant I have reviewed the following items enma (where applicable) has been applied. Labs Laboratory Tests Test 12/13/18 00:19 12/13/18 00:25 12/13/18 00:54 12/13/18 01:44 Glucose (Fingerstick) 124 mg/dL (70-99) White Blood Count 7.9 x10^3/uL (4.0-11.0) Red Blood Count 4.31 x10^6/uL (3.50-5.40) Hemoglobin 13.6 g/dL (12.0-15.5) Hematocrit 40.1 % (36.0-47.0) Mean Corpuscular Volume 93 fL (79-100) Mean Corpuscular Hemoglobin 32 pg (25-35) Mean Corpuscular Hemoglobin Concent 34 g/dL (31-37) Red Cell Distribution Width 13.0 % (11.5-14.5) Platelet Count 225 x10^3/uL (140-400) Neutrophils (%) (Auto) 44 % (31-73) Lymphocytes (%) (Auto) 46 % (24-48) Monocytes (%) (Auto) 7 % (0-9) Eosinophils (%) (Auto) 1 % (0-3) Basophils (%) (Auto) 1 % (0-3) Neutrophils # (Auto) 3.5 x10^3uL (1.8-7.7) Lymphocytes # (Auto) 3.7 x10^3/uL (1.0-4.8) Monocytes # (Auto) 0.6 x10^3/uL (0.0-1.1) Eosinophils # (Auto) 0.1 x10^3/uL (0.0-0.7) Basophils # (Auto) 0.1 x10^3/uL (0.0-0.2) Lactic Acid Level 1.5 mmol/L (0.4-2.0) Magnesium Level 1.9 mg/dL (1.8-2.4) Ethyl Alcohol Level < 10 mg/dL (0-10) Sodium Level 137 mmol/L (136-145) Potassium Level 3.1 mmol/L (3.5-5.1) Chloride Level 105 mmol/L (98-107) Carbon Dioxide Level 23 mmol/L (21-32) Anion Gap 9 (6-14) Blood Urea Nitrogen 8 mg/dL (7-20) Creatinine 0.6 mg/dL (0.6-1.0) Estimated GFR (Cockcroft-Gault) 123.9 BUN/Creatinine Ratio 13 (6-20) Glucose Level 109 mg/dL (70-99) Calcium Level 7.8 mg/dL (8.5-10.1) Total Bilirubin 0.1 mg/dL (0.2-1.0) Aspartate Amino Transf (AST/SGOT) 18 U/L (15-37) Alanine Aminotransferase (ALT/SGPT) 20 U/L (14-59) Alkaline Phosphatase 65 U/L (46-116) Creatine Kinase 100 U/L (26-192) Creatine Kinase MB (Mass) 0.8 ng/mL (0.0-3.6) Creatine Kinase MB Relative Index 0.8 % (0-4) Troponin I Quantitative < 0.017 ng/mL (0.000-0.055) Total Protein 6.2 g/dL (6.4-8.2) Albumin 3.0 g/dL (3.4-5.0) Albumin/Globulin Ratio 0.9 (1.0-1.7) Urine Opiates Screen Neg (NEG) Urine Methadone Screen Neg (NEG) Urine Barbiturates Neg (NEG) Urine Phencyclidine Screen Neg (NEG) Urine Amphetamine/Methamphetamine Neg (NEG) Urine Benzodiazepines Screen Neg (NEG) Urine Cocaine Screen Neg (NEG) Urine Cannabinoids Screen Neg (NEG) Urine Ethyl Alcohol Neg (NEG) Test 12/13/18 01:46 12/13/18 09:10 Bedside Urine HCG, Qualitative Hcg negative (Negative) Ionized Calcium 1.19 mmol/L (1.13-1.32) Laboratory Tests Test 12/13/18 09:10 Ionized Calcium 1.19 mmol/L (1.13-1.32) Medications Current Medications Sodium Chloride 1,000 ml @ 1,000 mls/hr 1X ONCE IV Last administered on 11/20 01:07; Start 12/13/18 at 01:00; Stop 12/13/18 at 01:59; Status DC Iohexol (Omnipaque 350 Mg/ml) 90 ml 1X ONCE IV Last administered on 12/13/18at 00:45; Start 12/13/18 at 01:00; Stop 12/13/18 at 01:01; Status DC Lorazepam (Ativan) 0.5 mg 1X ONCE IV Last administered on 12/13/18at 01:07; Start 12/13/18 at 01:00; Stop 12/13/18 at 01:01; Status DC Info (CONTRAST GIVEN -- Rx MONITORING) 1 each PRN DAILY PRN MC SEE COMMENTS; Start 12/13/18 at 00:45; Stop 12/15/18 at 00:44 Aspirin (Miguel Aspirin) 325 mg 1X ONCE PO Last administered on 12/13/18at 01:07; Start 12/13/18 at 01:30; Stop 12/13/18 at 01:31; Status DC Potassium Chloride (Klor-Con) 40 meq 1X ONCE PO Last administered on 12/13/18at 02:50; Start 12/13/18 at 02:30; Stop 12/13/18 at 02:31; Status DC Acetaminophen/ Butalbital/ Caffeine (Fioricet) 1 tab 1X ONCE PO Last administered on 12/13/18at 02:51; Start 12/13/18 at 03:00; Stop 12/13/18 at 03:01; Status DC Iohexol (Omnipaque 350 Mg/ml) 90 ml 1X ONCE IV ; Start 12/13/18 at 06:00; Stop 12/13/18 at 06:01; Status DC Sumatriptan Succinate (Imitrex) 100 mg PRN Q2HR PRN PO MIGRAINE HEADACHE Last administered on 12/13/18 10:33; Start 12/13/18 at 08:45 Potassium Chloride (Klor-Con) 40 meq 1X ONCE PO Last administered on 12/13/18 11:12; Start 12/13/18 at 11:00; Stop 12/13/18 at 11:01; Status DC Potassium Chloride (Klor-Con) 20 meq DAILYWBKFT PO ; Start 12/14/18 at 08:00 Aspirin (Miguel Aspirin) 325 mg DAILYWBKFT PO Last administered on 12/14/18 08:41; Start 12/13/18 at 13:00 Morphine Sulfate (Morphine Sulfate) 2 mg 1X ONCE IV Last administered on 12/13/18at 11:13; Start 12/13/18 at 11:15; Stop 12/13/18 at 11:16; Status DC Morphine Sulfate (Morphine Sulfate) 4 mg PRN Q2HR PRN IV PAIN Last administered on 12/13/18 16:08; Start 12/13/18 at 12:45 Gadobutrol (Gadavist) 5.5 mmol 1X ONCE IV Last administered on 12/13/18 14:39; Start 12/13/18 at 14:30; Stop 12/13/18 at 14:31; Status DC Gabapentin (Neurontin) 100 mg TID PO Last administered on 12/14/18 08:41; Start 12/13/18 at 21:00 Potassium Chloride/Dextrose/ Sod Cl 1,000 ml @ 100 mls/hr Q10H IV Last administered on 12/14/18 05:56; Start 12/13/18 at 21:00 Vitals/I & O Vital Sign - Last 24 Hours 12/13/18 12/13/18 12/13/18 12/13/18 11:00 11:13 15:05 16:08 Temp 97.5 98.4 97.5 98.4 Pulse 74 66 Resp 18 14 18 16 B/P (MAP) 119/78 (92) 106/76 (86) Pulse Ox 99 O2 Delivery Room Air Room Air Room Air Room Air 12/13/18 12/13/18 12/13/18 12/13/18 16:38 19:35 20:00 23:30 Temp 97.5 97.5 97.5 97.5 Pulse 65 78 Resp 16 16 16 B/P (MAP) 103/72 (82) 111/74 (86) Pulse Ox 99 100 O2 Delivery Room Air Room Air Room Air Room Air 12/14/18 12/14/18 12/14/18 01:45 03:35 07:00 Temp 98.6 98.6 98.6 98.6 Pulse 63 65 Resp 16 18 B/P (MAP) 88/52 (64) 92/66 (75) Pulse Ox 99 98 O2 Delivery Room Air Room Air Room Air Intake and Output 12/13/18 12/13/18 12/14/18 15:00 23:00 07:00 Intake Total 200 ml 100 ml 400 ml Balance 200 ml 100 ml 400 ml Images MRI of the Brain without and with Contrast 12/13/2018 Clinical History: Worsening headaches with right arm numbness. Technique: Unenhanced T1-weighted sagittal and axial and FLAIR, T2-weighted, gradient echo and diffusion-weighted axial images of the brain were obtained. After the intravenous administration of 5.5 cc of Gadavist, enhanced T1-weighted axial and coronal images of the brain were obtained. Findings: Comparison is made to patient's CT scan of the head dated 12/13/2018. The ventricles and sulci are within normal limits in size and configuration. Several small scattered areas of abnormally increased signal intensity are seen within the periventricular and subcortical white matter of both cerebral hemispheres particularly involving the frontal lobes on the FLAIR and T2-weighted images. These measure 2 to 3 mm in size. Their MRI appearance is nonspecific. They can be seen in patients with a history of migraine headaches. Alternatively they could represent areas of minimal small vessel ischemic disease. No acute parenchymal abnormality is seen. No abnormal area of contrast enhancement is seen. No extra-axial fluid collection is noted. There is no MRI evidence of acute ischemia/infarction. Mild mucosal thickening in seen scattered throughout the ethmoid air cells bilaterally. Normal flow voids are seen within the major vascular structures surrounding the brain parenchyma. Impression: Several small scattered areas of abnormally increased signal intensity are seen within the white matter of both cerebral hemispheres particularly involving the frontal lobes on the FLAIR and T2-weighted images. These have a nonspecific MRI appearance. They can be seen in patients with a history of migraine headaches. Alternatively they could represent areas of minimal small vessel ischemic disease. No acute parenchymal abnormality is seen. CTA HEAD/NECK - CODE STROKE INDICATION: right sided numbness, visual changes, right leg weakness Omni 350 90 ml COMPARISON: Head CT earlier same day TECHNIQUE: Axial CT images obtained through the head and neck arterial vasculature with intravenous contrast with three-dimensional images process per angiogram protocol. Estimates of carotid stenosis based on criteria that correlate with NASCET.. One or more of the following individualized dose reduction techniques were utilized for this examination: 1. Automated exposure control; 2. Adjustment of the mA and/or kV according to patient size; 3. Use of iterative reconstruction technique. FINDINGS: Neck angiogram: The vertebral arteries are patent. Common carotid and internal carotid arteries are patent. Proximal external carotid arteries are patent. Brain angiography: Basilar artery is patent. The proximal middle, anterior and posterior cerebral arteries are patent. The more distal vessels are not well evaluated secondary to small size and motion. Other findings: No retro-orbital hematoma. Soft tissue density anterior mediastinum. Commonly from residual thymus in a patient of this age. IMPRESSION: 1. No evidence of occlusion of the vertebral, common carotid or internal carotid arteries. 2. The proximal middle, anterior and posterior cerebral arteries are patent. If there is high clinical concern for stroke MRI could better evaluate for a more peripheral stroke that would not be well seen on CT angiography. CESAR LOPEZ MD Dec 14, 2018 09:03
--- NOTE | 2018-12-14 09:50 | PDOC ---
PROGRESS NOTES Chief Complaint Chief Complaint severe headache, migrane status migranosa with parathesia, Right side numbness, diploplia History of Present Illness History of Present Illness pain better, now on neurontin, may need to increase, still hurting, could try to DC later today, she does not feel well enough this AM Vitals Vitals Vital Signs Date Time Temp Pulse Resp B/P (MAP) Pulse Ox O2 Delivery O2 Flow Rate FiO2 12/14/18 07:00 98.6 65 18 92/66 (75) 98 Room Air 98.6 Physical Exam General: Alert, Oriented X3, moderate distress Abdomen: Normal bowel sounds, Soft Extremities: No cyanosis, Normal pulses Skin: No breakdown Assessment and Plan Assessmemt and Plan Problems Medical Problems: (1) Arm paresthesia, right Status: Acute Comment Review of Relevant I have reviewed the following items enma (where applicable) has been applied. Labs Laboratory Tests Test 12/13/18 00:19 12/13/18 00:25 12/13/18 00:54 12/13/18 01:44 Glucose (Fingerstick) 124 mg/dL (70-99) White Blood Count 7.9 x10^3/uL (4.0-11.0) Red Blood Count 4.31 x10^6/uL (3.50-5.40) Hemoglobin 13.6 g/dL (12.0-15.5) Hematocrit 40.1 % (36.0-47.0) Mean Corpuscular Volume 93 fL (79-100) Mean Corpuscular Hemoglobin 32 pg (25-35) Mean Corpuscular Hemoglobin Concent 34 g/dL (31-37) Red Cell Distribution Width 13.0 % (11.5-14.5) Platelet Count 225 x10^3/uL (140-400) Neutrophils (%) (Auto) 44 % (31-73) Lymphocytes (%) (Auto) 46 % (24-48) Monocytes (%) (Auto) 7 % (0-9) Eosinophils (%) (Auto) 1 % (0-3) Basophils (%) (Auto) 1 % (0-3) Neutrophils # (Auto) 3.5 x10^3uL (1.8-7.7) Lymphocytes # (Auto) 3.7 x10^3/uL (1.0-4.8) Monocytes # (Auto) 0.6 x10^3/uL (0.0-1.1) Eosinophils # (Auto) 0.1 x10^3/uL (0.0-0.7) Basophils # (Auto) 0.1 x10^3/uL (0.0-0.2) Lactic Acid Level 1.5 mmol/L (0.4-2.0) Magnesium Level 1.9 mg/dL (1.8-2.4) Ethyl Alcohol Level < 10 mg/dL (0-10) Sodium Level 137 mmol/L (136-145) Potassium Level 3.1 mmol/L (3.5-5.1) Chloride Level 105 mmol/L (98-107) Carbon Dioxide Level 23 mmol/L (21-32) Anion Gap 9 (6-14) Blood Urea Nitrogen 8 mg/dL (7-20) Creatinine 0.6 mg/dL (0.6-1.0) Estimated GFR (Cockcroft-Gault) 123.9 BUN/Creatinine Ratio 13 (6-20) Glucose Level 109 mg/dL (70-99) Calcium Level 7.8 mg/dL (8.5-10.1) Total Bilirubin 0.1 mg/dL (0.2-1.0) Aspartate Amino Transf (AST/SGOT) 18 U/L (15-37) Alanine Aminotransferase (ALT/SGPT) 20 U/L (14-59) Alkaline Phosphatase 65 U/L (46-116) Creatine Kinase 100 U/L (26-192) Creatine Kinase MB (Mass) 0.8 ng/mL (0.0-3.6) Creatine Kinase MB Relative Index 0.8 % (0-4) Troponin I Quantitative < 0.017 ng/mL (0.000-0.055) Total Protein 6.2 g/dL (6.4-8.2) Albumin 3.0 g/dL (3.4-5.0) Albumin/Globulin Ratio 0.9 (1.0-1.7) Urine Opiates Screen Neg (NEG) Urine Methadone Screen Neg (NEG) Urine Barbiturates Neg (NEG) Urine Phencyclidine Screen Neg (NEG) Urine Amphetamine/Methamphetamine Neg (NEG) Urine Benzodiazepines Screen Neg (NEG) Urine Cocaine Screen Neg (NEG) Urine Cannabinoids Screen Neg (NEG) Urine Ethyl Alcohol Neg (NEG) Test 4/25/19 01:46 12/13/18 09:10 Bedside Urine HCG, Qualitative Hcg negative (Negative) Ionized Calcium 1.19 mmol/L (1.13-1.32) Medications Current Medications Sodium Chloride 1,000 ml @ 1,000 mls/hr 1X ONCE IV Last administered on 12/13/18 01:07; Start 12/13/18 at 01:00; Stop 12/13/18 at 01:59; Status DC Iohexol (Omnipaque 350 Mg/ml) 90 ml 1X ONCE IV Last administered on 12/13/18at 00:45; Start 12/13/18 at 01:00; Stop 12/13/18 at 01:01; Status DC Lorazepam (Ativan) 0.5 mg 1X ONCE IV Last administered on 12/13/18at 01:07; Start 12/13/18 at 01:00; Stop 12/13/18 at 01:01; Status DC Info (CONTRAST GIVEN -- Rx MONITORING) 1 each PRN DAILY PRN MC SEE COMMENTS; Start 12/13/18 at 00:45; Stop 12/15/18 at 00:44 Aspirin (Miguel Aspirin) 325 mg 1X ONCE PO Last administered on 12/13/18at 01:07; Start 12/13/18 at 01:30; Stop 12/13/18 at 01:31; Status DC Potassium Chloride (Klor-Con) 40 meq 1X ONCE PO Last administered on 12/13/18at 02:50; Start 12/13/18 at 02:30; Stop 12/13/18 at 02:31; Status DC Acetaminophen/ Butalbital/ Caffeine (Fioricet) 1 tab 1X ONCE PO Last administered on 12/13/18at 02:51; Start 12/13/18 at 03:00; Stop 12/13/18 at 03:01; Status DC Iohexol (Omnipaque 350 Mg/ml) 90 ml 1X ONCE IV ; Start 12/13/18 at 06:00; Stop 12/13/18 at 06:01; Status DC Sumatriptan Succinate (Imitrex) 100 mg PRN Q2HR PRN PO MIGRAINE HEADACHE Last administered on 12/13/18at 10:33; Start 12/13/18 at 08:45 Potassium Chloride (Klor-Con) 40 meq 1X ONCE PO Last administered on 12/13/18at 11:12; Start 12/13/18 at 11:00; Stop 12/13/18 at 11:01; Status DC Potassium Chloride (Klor-Con) 20 meq DAILYWBKFT PO ; Start 12/14/18 at 08:00 Aspirin (Miguel Aspirin) 325 mg DAILYWBKFT PO Last administered on 12/14/18at 08:41; Start 12/13/18 at 13:00; Stop 12/14/18 at 09:01; Status DC Morphine Sulfate (Morphine Sulfate) 2 mg 1X ONCE IV Last administered on 12/13/18at 11:13; Start 12/13/18 at 11:15; Stop 12/13/18 at 11:16; Status DC Morphine Sulfate (Morphine Sulfate) 4 mg PRN Q2HR PRN IV PAIN Last administered on 12/13/18at 16:08; Start 12/13/18 at 12:45 Gadobutrol (Gadavist) 5.5 mmol 1X ONCE IV Last administered on 12/13/18at 14:39; Start 12/13/18 at 14:30; Stop 12/13/18 at 14:31; Status DC Gabapentin (Neurontin) 100 mg TID PO Last administered on 12/14/18 08:41; Start 12/13/18 at 21:00 Potassium Chloride/Dextrose/ Sod Cl 1,000 ml @ 100 mls/hr Q10H IV Last administered on 12/14/18at 05:56; Start 12/13/18 at 21:00 Aspirin (Children'S Aspirin) 81 mg DAILYWBKFT PO ; Start 12/14/18 at 09:00 Vitals/I & O Vital Sign - Last 24 Hours 12/13/18 12/13/18 12/13/18 12/13/18 11:00 11:13 15:05 16:08 Temp 97.5 98.4 97.5 98.4 Pulse 74 66 Resp 18 14 18 16 B/P (MAP) 119/78 (92) 106/76 (86) Pulse Ox 99 O2 Delivery Room Air Room Air Room Air Room Air 12/13/18 12/13/18 12/13/18 12/13/18 16:38 19:35 20:00 23:30 Temp 97.5 97.5 97.5 97.5 Pulse 65 78 Resp 16 16 16 B/P (MAP) 103/72 (82) 111/74 (86) Pulse Ox 99 100 O2 Delivery Room Air Room Air Room Air Room Air 12/14/18 12/14/18 12/14/18 01:45 03:35 07:00 Temp 98.6 98.6 98.6 98.6 Pulse 63 65 Resp 16 18 B/P (MAP) 88/52 (64) 92/66 (75) Pulse Ox 99 98 O2 Delivery Room Air Room Air Room Air Intake and Output 12/13/18 12/13/18 12/14/18 15:00 23:00 07:00 Intake Total 200 ml 100 ml 400 ml Balance 200 ml 100 ml 400 ml ROBBIN FUNK MD Dec 14, 2018 09:50
[2018-12-14 11:00] VITALS: BP 94/58
--- NOTE | 2018-12-14 11:19 | CARD ---
MR#: [id number] Date of Study: 12/14/2018 Ordering Physician: CESAR LOPEZ, Referring Physician: LAWRENCE GARCIA, Tech: Arianne Alexandre CHARLINE APPROVED REPORT EXAM: Two-dimensional and M-mode echocardiogram with Doppler, color Doppler with bubble study. Other Information Quality : Technically LimitedHR: 65bpm Rhythm : NSRTechnically limited study due to body habitus. INDICATION CVA/TIA 2D DIMENSIONS RVDd2.9 (2.9-3.5cm)Left Atrium(2D)2.7 (1.6-4.0cm) IVSd0.7 (0.7-1.1cm)Aortic Root(2D)2.3 (2.0-3.7cm) LVDd4.5 (3.9-5.9cm)LVOT Diameter1.8 (1.8-2.4cm) PWd0.6 (0.7-1.1cm)LVDs3.1 (2.5-4.0cm) FS (%) 32.0 %SV57.0 ml LVEF(%)60.2 (>50%) Aortic Valve AoV Peak Cyrus.143.2cm/sAoV VTI24.3cm AO Peak GR.8.2mmHgLVOT Peak Cyrus.111.7cm/s AO Mean GR.4mmHgAVA (VMAX)2.07cm2 NAVA (VTI)2.10cm2 Mitral Valve MV E Cxadoavt90.7cm/sMV DECEL [id number] MV A Bkmkjlxd74.8cm/sE/A Ratio1.4 MV A Ktfmlghr52wc Pulmonary Valve PV Peak Jfkvetxw877.8cm/s Tricuspid Valve TR P. Cwhzgyzt652zs/sRAP LLBEVRAO4bnHd TR Peak Gr.57ilKnLAKK01ztCp Pulmonary Vein S1 Fswerrtk99.1cm/sD2 Rbqnzpbl13.5cm/s PVa zxhprrmb77skjv LEFT VENTRICLE The left ventricle is normal size. There is normal left ventricular wall thickness. The left ventricu lar systolic function is normal. The Ejection Fraction is 55-60%. There is normal LV segmental wall m otion. The left ventricular diastolic function and filling is normal for age. LV apical trabeculation s. RIGHT VENTRICLE The right ventricle is normal size. There is normal right ventricular wall thickness. The right ventr icular systolic function is normal. ATRIA The left atrium size is normal. The right atrium size is normal. The interatrial septum is intact wit h no evidence for an atrial septal defect or patent foramen ovale as noted on 2-D or Doppler imaging. Injection of bubbles documented no interatrial shunt. AORTIC VALVE The aortic valve is normal in structure and function. The aortic valve is trileaflet. Doppler and Col or Flow revealed no significant aortic regurgitation. There is no significant aortic valvular stenosi s. There is no aortic valvular vegetation. MITRAL VALVE The mitral valve is normal in structure and function. There is no evidence of mitral valve prolapse. There is no mitral valve stenosis. Doppler and Color-flow revealed trace mitral regurgitation. TRICUSPID VALVE The tricuspid valve is normal in structure and function. Doppler and Color Flow revealed trace tricus pid regurgitation. The PA pressure was estimated at 21 mmHg. There is no tricuspid valve prolapse or vegetation. There is no tricuspid valve stenosis. PULMONIC VALVE The pulmonic valve is not well visualized. GREAT VESSELS The aortic root is normal in size. The ascending aorta is normal in size. The IVC is normal in size a nd collapses >50% with inspiration. PERICARDIAL EFFUSION There is no evidence of significant pericardial effusion. Critical Notification Critical Value: No <Conclusion> The left ventricular systolic function is normal. The Ejection Fraction is 55-60%. There is normal LV segmental wall motion. Trace mitral regurgitation. Trace tricuspid regurgitation. The PA pressure was estimated at 21 mmHg. There is no evidence of significant pericardial effusion. Signed by : Balaji Yap, Electronically Approved : 12/14/2018 11:19:19
[2018-12-14] MEDS: MORPHINE SULFATE 4 MG/ML VIAL. IV PRN (12:54)
[2018-12-14 15:00] VITALS: BP 101/75
[2018-12-14 19:42] VITALS: BP 113/73
[2018-12-14 23:19] VITALS: BP 105/72
[2018-12-15] MEDS: POTASSIUM CL 30MEQ D5-0.45NACL 1,000 ML IV SCH ×2 (02:19→13:00)
[2018-12-15 03:21] VITALS: BP 102/79
[2018-12-15] MEDS: SUMAtriptan SUCCINATE 100 MG TABLET PO PRN (07:02)
[2018-12-15 07:30] VITALS: BP 108/72
[2018-12-15] MEDS: POTASSIUM CHLORIDE 20 MEQ TABLET.ER. PO SCH (08:00)
[2018-12-15] MEDS: GABAPENTIN 100 MG CAPSULE. PO SCH ×2 (10:13→15:35)
[2018-12-15] MEDS: ASPIRIN CHEWABLE 81 MG TABLET. PO SCH (10:13)
[2018-12-15 10:56] VITALS: BP 105/69
--- NOTE | 2018-12-15 11:07 | PDOC ---
PROGRESS NOTES Chief Complaint Chief Complaint severe headache, migrane status migranosa with parathesia, Right side numbness, diploplia Several small scattered areas of abnormally increased signal intensity are seen within the white matter of both cerebral hemispheres particularly involving the frontal lobes on the FLAIR and T2-weighted images. Symptoms explainable by migraine headache. History of Present Illness History of Present Illness MIGRANE WITH INTRACTABLE HEADACHE RESOLVED PAIN pain now on neurontin, may need to increase, Does not need statin, no sign of stroke Okay for discharge 12/15 Neurontin 100 mg tid Daily Aspirin 81 mg Pain control. FU with Dr. Cavazos in 4-6 weeks Vitals Vitals Vital Signs Date Time Temp Pulse Resp B/P (MAP) Pulse Ox O2 Delivery O2 Flow Rate FiO2 12/15/18 10:56 98.1 82 18 105/69 (81) 97 Room Air 98.1 Physical Exam General: Alert, Oriented X3, Cooperative, No acute distress Heart: Regular rate, Normal S1, Normal S2, No murmurs Lungs: Clear Abdomen: Normal bowel sounds, Soft Extremities: No clubbing, No cyanosis, Normal pulses Skin: No breakdown Labs LABS STATUS: ADM IN ORD. PHYSICIAN: ROBBIN FUNK MD REASON: intractable headache with parathesias PROCEDURE: BRAIN WO/W CONTRAST MRI of the Brain without and with Contrast 12/13/2018 Clinical History: Worsening headaches with right arm numbness. Technique: Unenhanced T1-weighted sagittal and axial and FLAIR, T2-weighted, gradient echo and diffusion-weighted axial images of the brain were obtained. After the intravenous administration of 5.5 cc of Gadavist, enhanced T1-weighted axial and coronal images of the brain were obtained. Findings: Comparison is made to patient's CT scan of the head dated 12/13/2018. The ventricles and sulci are within normal limits in size and configuration. Several small scattered areas of abnormally increased signal intensity are seen within the periventricular and subcortical white matter of both cerebral hemispheres particularly involving the frontal lobes on the FLAIR and T2-weighted images. These measure 2 to 3 mm in size. Their MRI appearance is nonspecific. They can be seen in patients with a history of migraine headaches. Alternatively they could represent areas of minimal small vessel ischemic disease. No acute parenchymal abnormality is seen. No abnormal area of contrast enhancement is seen. No extra-axial fluid collection is noted. There is no MRI evidence of acute ischemia/infarction. Mild mucosal thickening in seen scattered throughout the ethmoid air cells bilaterally. Normal flow voids are seen within the major vascular structures surrounding the brain parenchyma. Impression: Several small scattered areas of abnormally increased signal intensity are seen within the white matter of both cerebral hemispheres particularly involving the frontal lobes on the FLAIR and T2-weighted images. These have a nonspecific MRI appearance. They can be seen in patients with a history of migraine headaches. Alternatively they could represent areas of minimal small vessel ischemic disease. No acute parenchymal abnormality is seen. Electronically signed by: Bassam Adams MD (12/13/2018 3:38 PM) [facility] DICTATED and SIGNED BY: BASSAM ADAMS MD DATE: 12/13/18 153 Assessment and Plan Assessmemt and Plan Problems Medical Problems: (1) Arm paresthesia, right Status: Acute Comment Review of Relevant I have reviewed the following items enma (where applicable) has been applied. Medications Current Medications Sodium Chloride 1,000 ml @ 1,000 mls/hr 1X ONCE IV Last administered on 12/13/18at 01:07; Start 12/13/18 at 01:00; Stop 12/13/18 at 01:59; Status DC Iohexol (Omnipaque 350 Mg/ml) 90 ml 1X ONCE IV Last administered on 12/13/18at 00:45; Start 12/13/18 at 01:00; Stop 12/13/18 at 01:01; Status DC Lorazepam (Ativan) 0.5 mg 1X ONCE IV Last administered on 12/13/18at 01:07; Start 12/13/18 at 01:00; Stop 12/13/18 at 01:01; Status DC Info (CONTRAST GIVEN -- Rx MONITORING) 1 each PRN DAILY PRN MC SEE COMMENTS; Start 12/13/18 at 00:45; Stop 12/15/18 at 00:44; Status DC Aspirin (Miguel Aspirin) 325 mg 1X ONCE PO Last administered on 12/13/18at 01:07; Start 12/13/18 at 01:30; Stop 12/13/18 at 01:31; Status DC Potassium Chloride (Klor-Con) 40 meq 1X ONCE PO Last administered on 12/13/18at 02:50; Start 12/13/18 at 02:30; Stop 12/13/18 at 02:31; Status DC Acetaminophen/ Butalbital/ Caffeine (Fioricet) 1 tab 1X ONCE PO Last administered on 12/13/18at 02:51; Start 12/13/18 at 03:00; Stop 12/13/18 at 03:01; Status DC Iohexol (Omnipaque 350 Mg/ml) 90 ml 1X ONCE IV ; Start 12/13/18 at 06:00; Stop 12/13/18 at 06:01; Status DC Sumatriptan Succinate (Imitrex) 100 mg PRN Q2HR PRN PO MIGRAINE HEADACHE Last administered on 12/15/18 07:02; Start 12/13/18 at 08:45 Potassium Chloride (Klor-Con) 40 meq 1X ONCE PO Last administered on 12/13/18at 11:12; Start 12/13/18 at 11:00; Stop 12/13/18 at 11:01; Status DC Potassium Chloride (Klor-Con) 20 meq DAILYWBKFT PO ; Start 12/14/18 at 08:00 Aspirin (Miguel Aspirin) 325 mg DAILYWBKFT PO Last administered on 12/14/18at 08:41; Start 12/13/18 at 13:00; Stop 12/14/18 at 09:01; Status DC Morphine Sulfate (Morphine Sulfate) 2 mg 1X ONCE IV Last administered on 12/13/18at 11:13; Start 12/13/18 at 11:15; Stop 12/13/18 at 11:16; Status DC Morphine Sulfate (Morphine Sulfate) 4 mg PRN Q2HR PRN IV PAIN Last administered on 12/14/18 12:54; Start 12/13/18 at 12:45 Gadobutrol (Gadavist) 5.5 mmol 1X ONCE IV Last administered on 12/13/18at 14:39; Start 12/13/18 at 14:30; Stop 12/13/18 at 14:31; Status DC Gabapentin (Neurontin) 100 mg TID PO Last administered on 12/15/18at 10:13; Start 12/13/18 at 21:00 Potassium Chloride/Dextrose/ Sod Cl 1,000 ml @ 100 mls/hr Q10H IV Last administered on 12/14/18 05:56; Start 12/13/18 at 21:00 Aspirin (Children'S Aspirin) 81 mg DAILYWBKFT PO Last administered on 4/27/19at 10:13; Start 12/14/18 at 09:00 Vitals/I & O Vital Sign - Last 24 Hours 12/14/18 12/14/18 12/14/18 12/14/18 12:54 15:00 19:42 20:00 Temp 97.7 97.8 97.7 97.8 Pulse 70 79 Resp 16 18 18 B/P (MAP) 101/75 (84) 113/73 (86) Pulse Ox 100 98 O2 Delivery Room Air Room Air Room Air Room Air 12/14/18 12/15/18 12/15/18 12/15/18 23:19 03:21 07:30 10:56 Temp 98.4 98.4 98.4 98.1 98.4 98.4 98.4 98.1 Pulse 88 67 90 82 Resp 20 20 20 18 B/P (MAP) 105/72 (83) 102/79 (87) 108/72 (84) 105/69 (81) Pulse Ox 98 96 96 97 O2 Delivery Room Air Room Air Room Air Room Air Intake and Output 12/14/18 12/14/18 12/15/18 14:59 22:59 06:59 Intake Total 50 ml 690 ml 400 ml Balance 50 ml 690 ml 400 ml ARVIND SOTOMAYOR MD Dec 15, 2018 11:06
[2018-12-15] MEDS ORDERED: POTASSIUM CHLORIDE 20 MEQ TABLET.ER. PO ONE (13:30)
[2018-12-15] MEDS ORDERED: SUMA100T3 PO (13:38)
[2018-12-15] MEDS ORDERED: GABA-585 PO (13:38)
[2018-12-15] MEDS ORDERED: POTA20TA4 PO (13:38)
--- NOTE | 2018-12-15 13:44 | PDOC3 ---
Discharge Summary Date of Admission: Dec 13, 2018 Date of Discharge: Dec 15, 2018 Follow-Up: 3-5 days Admitting Diagnosis comment: DISCHARGE DX Chief Complaint severe headache, migrane status migranosa with parathesia, Right side numbness, diploplia Several small scattered areas of abnormally increased signal intensity are seen within the white matter of both cerebral hemispheres particularly involving the frontal lobes on the FLAIR and T2-weighted images. Symptoms explainable by migraine headache. History of Present Illness History of Present Illness MIGRANE WITH INTRACTABLE HEADACHE RESOLVED PAIN pain now on neurontin, may need to increase, Does not need statin, no sign of stroke Okay for discharge 12/15 Neurontin 100 mg tid Daily Aspirin 81 mg Pain control. FU with Dr. Cavazos in 4-6 weeks Vitals Vitals Vital Signs Date Time Temp Pulse Resp B/P (MAP) Pulse Ox O2 Delivery O2 Flow Rate FiO2 12/15/18 10:56 98.1 82 18 105/69 (81) 97 Room Air 98.1 Physical Exam General: Alert, Oriented X3, Cooperative, No acute distress Heart: Regular rate, Normal S1, Normal S2, No murmurs Lungs: Clear Abdomen: Normal bowel sounds, Soft Extremities: No clubbing, No cyanosis, Normal pulses Skin: No breakdown Labs LABS STATUS: ADM IN ORD. PHYSICIAN: ROBBIN FUNK MD REASON: intractable headache with parathesias PROCEDURE: BRAIN WO/W CONTRAST MRI of the Brain without and with Contrast 12/13/2018 Clinical History: Worsening headaches with right arm numbness. Technique: Unenhanced T1-weighted sagittal and axial and FLAIR, T2-weighted, gradient echo and diffusion-weighted axial images of the brain were obtained. After the intravenous administration of 5.5 cc of Gadavist, enhanced T1-weighted axial and coronal images of the brain were obtained. Findings: Comparison is made to patient's CT scan of the head dated 12/13/2018. The ventricles and sulci are within normal limits in size and configuration. Several small scattered areas of abnormally increased signal intensity are seen within the periventricular and subcortical white matter of both cerebral hemispheres particularly involving the frontal lobes on the FLAIR and T2-weighted images. These measure 2 to 3 mm in size. Their MRI appearance is nonspecific. They can be seen in patients with a history of migraine headaches. Alternatively they could represent areas of minimal small vessel ischemic disease. No acute parenchymal abnormality is seen. No abnormal area of contrast enhancement is seen. No extra-axial fluid collection is noted. There is no MRI evidence of acute ischemia/infarction. Mild mucosal thickening in seen scattered throughout the ethmoid air cells bilaterally. Normal flow voids are seen within the major vascular structures surrounding the brain parenchyma. Impression: Several small scattered areas of abnormally increased signal intensity are seen within the white matter of both cerebral hemispheres particularly involving the frontal lobes on the FLAIR and T2-weighted images. These have a nonspecific MRI appearance. They can be seen in patients with a history of migraine headaches. Alternatively they could represent areas of minimal small vessel ischemic disease. No acute parenchymal abnormality is seen. Electronically signed by: Bassam Adams MD (12/13/2018 3:38 PM) [facility] DICTATED and SIGNED BY: BASSAM ADAMS MD FINAL DIAGNOSIS Problems Medical Problems: (1) Arm paresthesia, right Status: Acute Brief Hospital Course Ms. Graf is a 23 old [sex] who presented with [MIGRANE, INTRACTABLE ] CONDITION AT DISCHARGE: Improved Discharge Medications Current Medications Sodium Chloride 1,000 ml @ 1,000 mls/hr 1X ONCE IV Last administered on 12/13/18at 01:07; Start 12/13/18 at 01:00; Stop 12/13/18 at 01:59; Status DC Iohexol (Omnipaque 350 Mg/ml) 90 ml 1X ONCE IV Last administered on 12/13/18at 00:45; Start 12/13/18 at 01:00; Stop 12/13/18 at 01:01; Status DC Lorazepam (Ativan) 0.5 mg 1X ONCE IV Last administered on 12/13/18at 01:07; Start 12/13/18 at 01:00; Stop 12/13/18 at 01:01; Status DC Info (CONTRAST GIVEN -- Rx MONITORING) 1 each PRN DAILY PRN MC SEE COMMENTS; Start 12/13/18 at 00:45; Stop 12/15/18 at 00:44; Status DC Aspirin (Miguel Aspirin) 325 mg 1X ONCE PO Last administered on 12/13/18at 01:07; Start 12/13/18 at 01:30; Stop 12/13/18 at 01:31; Status DC Potassium Chloride (Klor-Con) 40 meq 1X ONCE PO Last administered on 12/13/18 02:50; Start 12/13/18 at 02:30; Stop 12/13/18 at 02:31; Status DC Acetaminophen/ Butalbital/ Caffeine (Fioricet) 1 tab 1X ONCE PO Last admi nistered on 12/13/18at 02:51; Start 12/13/18 at 03:00; Stop 12/13/18 at 03:01; Status DC Iohexol (Omnipaque 350 Mg/ml) 90 ml 1X ONCE IV ; Start 12/13/18 at 06:00; Stop 12/13/18 at 06:01; Status DC Sumatriptan Succinate (Imitrex) 100 mg PRN Q2HR PRN PO MIGRAINE HEADACHE Last administered on 12/15/18at 07:02; Start 12/13/18 at 08:45 Potassium Chloride (Klor-Con) 40 meq 1X ONCE PO Last administered on 12/13/18at 11:12; Start 12/13/18 at 11:00; Stop 12/13/18 at 11:01; Status DC Potassium Chloride (Klor-Con) 20 meq DAILYWBKFT PO ; Start 12/14/18 at 08:00 Aspirin (Miguel Aspirin) 325 mg DAILYWBKFT PO Last administered on 12/14/18at 08: 41; Start 12/13/18 at 13:00; Stop 12/14/18 at 09:01; Status DC Morphine Sulfate (Morphine Sulfate) 2 mg 1X ONCE IV Last administered on 12/13/18at 11:13; Start 12/13/18 at 11:15; Stop 12/13/18 at 11:16; Status DC Morphine Sulfate (Morphine Sulfate) 4 mg PRN Q2HR PRN IV PAIN Last administered on 12/14/18at 12:54; Start 12/13/18 at 12:45 Gadobutrol (Gadavist) 5.5 mmol 1X ONCE IV Last administered on 12/13/18at 14:39; Start 12/13/18 at 14:30; Stop 12/13/18 at 14:31; Status DC Gabapentin (Neurontin) 100 mg TID PO Last administered on 12/15/18at 10:13; Start 12/13/18 at 21:00 Potassium Chloride/Dextrose/ Sod Cl 1,000 ml @ 100 mls/hr Q10H IV Last administered on 12/14/18at 05:56; Start 12/13/18 at 21:00 Aspirin (Children'S Aspirin) 81 mg DAILYWBKFT PO Last administered on 12/15/18at 10:13; Start 12/14/18 at 09:00 Potassium Chloride (Klor-Con) 40 meq 1X ONCE PO ; Start 12/15/18 at 13:30; Stop 12/15/18 at 13:31; Status DC Potassium Chloride (Klor-Con) 20 meq DAILYWBKFT PO ; Start 12/16/18 at 08:00 Active Scripts Active Klor-Con M20 (Potassium Chloride) 20 Meq Tab.er.prt 20 Meq PO DAILYWBKFT 10 Days Imitrex (Sumatriptan Succinate) 100 Mg Tablet 100 Mg PO PRN Q2HR PRN 28 Days Gabapentin (Gabapentin) 100 Mg Capsule 100 Mg PO TID 30 Days Vital Signs Vital Signs Date Time Temp Pulse Resp B/P (MAP) Pulse Ox O2 Delivery O2 Flow Rate FiO2 12/15/18 10:56 98.1 82 18 105/69 (81) 97 Room Air 98.1 Allergies Allergies Coded Allergies Type Severity Reaction Last Updated Verified No Known Drug Allergies 12/13/18 No Disposition/Orders: D/C to Home Patient Instructions D/C PLANNING 34 MIN ARVIND SOTOMAYOR MD Dec 15, 2018 13:44
--- NOTE | 2018-12-15 13:45 | DISCH ---
DISCHARGE INSTRUCTIONS Condition on Discharge Condition on Discharge: Stable Activity After Discharge Activity Instructions for Disc: Activity as tolerated Lifting Instructions after Dis: No heavy lifting, No pulling or pushing Exercise Instruction after Dis: Walk 10 min, 3 x per day Driving Instructions after Dis: Do not drive today Diet after Discharge Diet after Discharge: Regular Checks after Discharge Checks after discharge: Check blood press - daily Contacting the [facility] after DC Call your doctor for: If your condition worsens ARVIND SOTOMAYOR MD Dec 15, 2018 13:45
[2018-12-15 15:24] VITALS: BP 102/62
--- NOTE | 2018-12-15 19:04 | NUR ---
Discharge Note: [facility] [address] [place] [address] Discharge instructions and discharge home medications reviewed with patient and a copy given. All questions have been answered and understanding verbalized. The following instructions and handouts were given: FF up with Dr. Cavazos in 4 to 6 weeks. Avoid aged cheese, aged wine, MSG, cured meats. Handouts about migraine headaches. Patient instructed to avoid triggers of migraine. Sumatriptan patient teaching handout Discontinued lines and drains: peripheral IV catheter intac, patient tolerated removal, no complications noted. Patient discharged to home with self care with accompanied by family members via wheelchair at 1810
[2018-12-16] MEDS ORDERED: POTASSIUM CHLORIDE 20 MEQ TABLET.ER. PO SCH (08:00)
== END 2018-12-15 18:13 | disposition home or self-care (01) | DRG 103 ==
LOC: EDBD 00:03 → ER 00:03 → 6 SOUTH 02:10
PROVIDERS: ADMIT Internal Medicine; ATTEND Internal Medicine
DX: G43.909 Migraine, unspecified, not intractable, without status migrainosus (principal); E66.3 Overweight; H53.2 Diplopia; Z83.3 Family history of diabetes mellitus; Z68.27 Body mass index [BMI] 27.0-27.9, adult; Z79.899 Other long term (current) drug therapy; Z79.82 Long term (current) use of aspirin
CPT/HCPCS: 36415; 70450; 70496; 70498; 70553; 80053; 80307; 81025; 82310; 82553; 82962; 83605; 83735; 84484; 85025; 93005; 93306; 96361; 96374; A9585; G0480; J2060; J2270; J7030; Q9967; 99291-25

== ENCOUNTER 2018-12-26 15:49 | Emergency (ER) | payer SELFPAY ==
[~2018-12-26] VITALS: Ht 152.4 cm; Wt 59.0 kg
[~2018-12-26 15:49] MED LIST: GABA-585 PO; POTA20TA4 PO; SUMA100T3 PO
[2018-12-26] MEDS ORDERED: KETOROLAC 30 MG/ML VIAL. IV ONE (16:00)
[2018-12-26] MEDS ORDERED: diphenhydrAMINE 50 MG/ML VIAL IVP ONE (16:00)
[2018-12-26] MEDS ORDERED: METOCLOPRAMIDE HCL 10 MG/2 ML VIAL. IV ONE (16:00)
--- NOTE | 2018-12-26 17:28 | PHYS DOC ---
Past Medical History Past Medical History: Migraines Past Surgical History: No Surgical History Alcohol Use: None Drug Use: None Adult General Chief Complaint Chief Complaint: HEADACHE HPI HPI 23-year-old female with a history of headaches but more recently has developed some fairly severe migraine headaches. She was seen in the emergency department recently and given medication which did help her symptoms. Today she states she developed a global, throbbing headache with some tingling in her arms. She describes both photophobia and phonophobia. She has had some associated nausea. She denies any fever or neck pain. She denies any lateralizing weakness.] Review of Systems Review of Systems Constitutional: Denies fever or chills [] Eyes: Denies change in visual acuity, redness, or eye pain [] HENT: Denies nasal congestion or sore throat [] Respiratory: Denies cough or shortness of breath [] Cardiovascular: No additional information not addressed in HPI [] GI: Denies abdominal pain, nausea, vomiting, bloody stools or diarrhea [] : Denies dysuria or hematuria [] Musculoskeletal: Denies back pain or joint pain [] Integument: Denies rash or skin lesions [] Neurologic: Per history of present illness[] Endocrine: Denies polyuria or polydipsia [] All other systems were reviewed and found to be within normal limits, except as documented in this note. Current Medications Current Medications Current Medications Medications (Trade) Dose Ordered Sig/Patricia Start Time Stop Time Status Last Admin Dose Admin Diphenhydramine HCl (Benadryl) 25 mg 1X ONCE 12/26/18 16:00 12/26/18 16:04 DC 12/26/18 16:31 25 MG Ketorolac Tromethamine (Toradol 30mg Vial) 30 mg 1X ONCE 12/26/18 16:00 12/26/18 16:04 DC 12/26/18 16:31 30 MG Metoclopramide HCl (Reglan Vial) 10 mg 1X ONCE 12/26/18 16:00 12/26/18 16:04 DC 12/26/18 16:31 10 MG Allergies Allergies Allergies Coded Allergies Type Severity Reaction Last Updated Verified No Known Drug Allergies 12/13/18 No Physical Exam Physical Exam Constitutional: Well developed, well nourished, moderate distress, non-toxic appearance. [] HENT: Normocephalic, atraumatic, bilateral external ears normal, oropharynx moist, no oral exudates, nose normal. [] Eyes: PERRLA, EOMI, conjunctiva normal, no discharge. [] Neck: Normal range of motion, no tenderness, supple, no stridor. [] Cardiovascular:Heart rate regular rhythm, no murmur [] Lungs & Thorax: Bilateral breath sounds clear to auscultation [] Abdomen: Bowel sounds normal, soft, no tenderness, no masses, no pulsatile masses. [] Skin: Warm, dry, no erythema, no rash. [] Back: No tenderness, no CVA tenderness. [] Extremities: No tenderness, no cyanosis, no clubbing, ROM intact, no edema. [] Neurologic: Alert and oriented X 3, normal motor function, normal sensory function, no focal deficits noted. [] Psychologic: Anxious, tearful. [] Current Patient Data Vital Signs Vital Signs Date Time Temp Pulse Resp B/P (MAP) Pulse Ox O2 Delivery O2 Flow Rate FiO2 12/26/18 15:55 98.1 99 16 98/62 (74) 98 Room Air 98.1 EKG EKG [] Radiology/Procedures Radiology/Procedures [] Course & Med Decision Making Course & Med Decision Making Pertinent Labs and Imaging studies reviewed. (See chart for details) [ED course: Evaluation reveals a 23-year-old female with classic migraine type symptoms. She was given IV fluids, Toradol 30 mg IV, Reglan 10 mg IV and Benadryl 25 mg IV with complete resolution of her symptoms. I will provide her with some Reglan to take at home.] Dragon Disclaimer Dragon Disclaimer This electronic medical record was generated, in whole or in part, using a voice recognition dictation system. Departure Departure Impression: Primary Impression: Atypical migraine Disposition: HOME, SELF-CARE Condition: IMPROVED Referrals: NO PCP (PCP) Patient Instructions: Migraine Headache Additional Instructions: Follow-through primary care physician this week for recheck. Return to the emergency department with any new or concerning symptoms Scripts Metoclopramide Hcl (REGLAN) 10 Mg Tablet 1 TAB PO Q8HRS PRN for migraine, #30 TAB Prov: EZEQUIEL ANDERSON DO 12/26/18 EZEQUIEL ANDERSON DO December 26, 2018 17:28
[2018-12-26] MEDS ORDERED: METO10TA81 PO (17:34)
[2018-12-26 18:09] VITALS: BP 98/61
== END 2018-12-26 18:28 | disposition home or self-care (01) ==
LOC: ER 15:49
DX: G43.809 Other migraine, not intractable, without status migrainosus (principal); R20.2 Paresthesia of skin
CPT/HCPCS: 96374; 96375; 99284; J1200; J1885; J2765

== ENCOUNTER 2019-02-14 22:16 | Emergency (ER) | payer SELFPAY ==
[~2019-02-14] VITALS: Ht 149.9 cm; Wt 59.0 kg
[~2019-02-14 22:16] MED LIST changes: +METO10TA81 PO
[2019-02-14 22:56] VITALS: BP 120/57
[2019-02-14] MEDS ORDERED: diphenhydrAMINE 50 MG/ML VIAL IVP ONE (23:30)
[2019-02-14] MEDS ORDERED: KETOROLAC 15 MG/ML VIAL. IV ONE (23:30)
[2019-02-14] MEDS ORDERED: IV NORMAL SALINE 1000ML BAG 1,000 ML IV ONE (23:30)
[2019-02-14] MEDS ORDERED: DEXAMETHASONE SOD PHOS 20 MG/5 ML VIAL. IV ONE (23:30)
[2019-02-14] MEDS ORDERED: METOCLOPRAMIDE HCL 10 MG/2 ML VIAL. IV ONE (23:30)
--- NOTE | 2019-02-14 23:45 | RAD ---
RS Compliance Statement: One or more of the following individualized dose reduction techniques were utilized for this examination: 1. Automated exposure control 2. Adjustment of the mA and/or kV according to patient size 3. Use of iterative reconstruction technique CT head without contrast 02/14/2019 11:19 PM INDICATION: Headache COMPARISON: CT head December 13, 2018 TECHNIQUE: Multiple axial CT images of the head were obtained from skull base through the vertex without intravenous contrast. FINDINGS: Head: Ring artifact is present without definite limitations. Ventricles, sulci and basal cisterns are within normal limits. There is no hydrocephalus. Mccollum-white matter differentiation is normal. There is no acute intracranial hemorrhage. There is no mass, mass effect or midline shift. Posterior fossa is normal in appearance. Visualized portions of the orbits are normal. Paranasal sinuses are well aerated. Mastoid air cells are well aerated. Scalp and calvaria are normal. IMPRESSION: No acute intracranial hemorrhage. Electronically signed by: Albertina Polanco MD (02/14/2019 11:42 PM) [facility]
--- NOTE | 2019-02-14 23:52 | PHYS DOC ---
Past Medical History Past Medical History: Migraines Past Surgical History: No Surgical History Alcohol Use: None Drug Use: None Adult General Chief Complaint Chief Complaint: HEADACHE HPI HPI Patient is a 23 year old [f__sex] who presents with [] Review of Systems Review of Systems Constitutional: Denies fever or chills [] Eyes: Denies change in visual acuity, redness, or eye pain [] HENT: Denies nasal congestion or sore throat [] Respiratory: Denies cough or shortness of breath [] Cardiovascular: No additional information not addressed in HPI [] GI: Denies abdominal pain, nausea, vomiting, bloody stools or diarrhea [] : Denies dysuria or hematuria [] Musculoskeletal: Denies back pain or joint pain [] Integument: Denies rash or skin lesions [] Neurologic: Denies headache, focal weakness or sensory changes [] Endocrine: Denies polyuria or polydipsia [] All other systems were reviewed and found to be within normal limits, except as documented in this note. Current Medications Current Medications Current Medications Medications (Trade) Dose Ordered Sig/Patricia Start Time Stop Time Status Last Admin Dose Admin Dexamethasone Sodium Phosphate (Decadron) 10 mg 1X ONCE 02/14/19 23:30 02/14/19 23:32 DC 02/14/19 23:58 10 MG Diphenhydramine HCl (Benadryl) 50 mg 1X ONCE 02/14/19 23:30 02/14/19 23:32 DC 02/15/19 00:01 50 MG Ketorolac Tromethamine (Toradol 15mg Vial) 15 mg 1X ONCE 02/14/19 23:30 02/14/19 23:32 DC 02/15/19 00:00 15 MG Metoclopramide HCl (Reglan Vial) 10 mg 1X ONCE 02/14/19 23:30 02/14/19 23:32 DC 02/14/19 23:59 10 MG Sodium Chloride 1,000 ml @ 1,000 mls/hr 1X ONCE 02/14/19 23:30 02/15/19 00:29 DC 02/14/19 23:59 1,000 MLS/HR Allergies Allergies Allergies Coded Allergies Type Severity Reaction Last Updated Verified No Known Drug Allergies 12/13/18 No Physical Exam Physical Exam Constitutional: Well developed, well nourished, no acute distress, non-toxic appearance. [] HENT: Normocephalic, atraumatic, bilateral external ears normal, oropharynx moist, no oral exudates, nose normal. [] Eyes: PERRLA, EOMI, conjunctiva normal, no discharge. [] Neck: Normal range of motion, no tenderness, supple, no stridor. [] Cardiovascular:Heart rate regular rhythm, no murmur [] Lungs & Thorax: Bilateral breath sounds clear to auscultation [] Abdomen: Bowel sounds normal, soft, no tenderness, no masses, no pulsatile masses. [] Skin: Warm, dry, no erythema, no rash. [] Back: No tenderness, no CVA tenderness. [] Extremities: No tenderness, no cyanosis, no clubbing, ROM intact, no edema. [] Neurologic: Alert and oriented X 3, normal motor function, normal sensory function, no focal deficits noted. [] Psychologic: Affect normal, judgement normal, mood normal. [] Current Patient Data Vital Signs Vital Signs Date Time Temp Pulse Resp B/P (MAP) Pulse Ox O2 Delivery O2 Flow Rate FiO2 02/14/19 22:56 98.1 62 20 120/57 (78) 94 Room Air 98.1 Lab Values Laboratory Tests Test 02/14/19 23:04 POC Urine HCG, Qualitative Hcg negative (Negative) EKG EKG [] Radiology/Procedures Radiology/Procedures PROCEDURE: CT HEAD WO CONTRAST PQRS Compliance Statement: One or more of the following individualized dose reduction techniques were utilized for this examination: 1. Automated exposure control 2. Adjustment of the mA and/or kV according to patient size 3. Use of iterative reconstruction technique CT head without contrast 02/14/2019 11:19 PM INDICATION: Headache COMPARISON: CT head December 13, 2018 TECHNIQUE: Multiple axial CT images of the head were obtained from skull base through the vertex without intravenous contrast. FINDINGS: Head: Ring artifact is present without definite limitations. Ventricles, sulci and basal cisterns are within normal limits. There is no hydrocephalus. Mccollum-white matter differentiation is normal. There is no acute intracranial hemorrhage. There is no mass, mass effect or midline shift. Posterior fossa is normal in appearance. Visualized portions of the orbits are normal. Paranasal sinuses are well aerated. Mastoid air cells are well aerated. Scalp and calvaria are normal. IMPRESSION: No acute intracranial hemorrhage. Electronically signed by: Albertina Polanco MD (02/14/2019 11:42 PM) [facility] Course & Med Decision Making Course & Med Decision Making Pertinent Labs and Imaging studies reviewed. (See chart for details) [] Dragon Disclaimer Dragon Disclaimer This electronic medical record was generated, in whole or in part, using a voice recognition dictation system. Departure Departure Impression: Primary Impression: Headache Disposition: 01 HOME, SELF-CARE Condition: STABLE Referrals: NO PCP (PCP) CESAR LOPEZ MD Patient Instructions: Headache, FAQs Scripts Ondansetron (ONDANSETRON ODT) 4 Mg Tab.rapdis 1 TAB PO PRN Q6-8HRS PRN for NAUSEA, #16 TAB Prov: MARTINEZ WILLETT DO 02/15/19 Butalb/Acetaminophen/Caffeine ([id number] [id number]) 1 Each Tablet 1 EACH PO Q6HRS PRN for HEADACHE, #14 TAB Prov: MARTINEZ WILLETT DO 02/15/19 Problem Qualifiers Primary Impression: Headache Headache type: unspecified Headache chronicity pattern: acute headache Intractability: not intractable Qualified Codes: R51 - Headache MARTINEZ WILLETT DO Feb 14, 2019 23:52
[2019-02-15] MEDS ORDERED: BUTA1TAB23 PO (00:37)
[2019-02-15] MEDS ORDERED: ONDA4TAB12 PO (00:37)
== END 2019-02-15 01:52 | disposition home or self-care (01) ==
LOC: ER 22:16
DX: G43.909 Migraine, unspecified, not intractable, without status migrainosus (principal)
CPT/HCPCS: 70450; 81025; 96374; 96375; 99284; J1100; J1200; J1885; J2765; J7030